=== PATIENT | female | born 1960 | race African-American/Black ===

== ENCOUNTER 2017-03-11 09:23 | Day surgery (SDC) | payer OTHER ==
[2017-03-11 12:54] VITALS: BMI 29.9
[2017-03-11] MEDS ORDERED: LIDOCAINE HCL/PF 2% SDV 5ML VIAL ONE (13:02)
[2017-03-11 13:59] VITALS: TEMP 98.2
[2017-03-11 15:38] VITALS: BP 110/61; PULSE 67
== END 2017-03-11 15:53 | disposition home or self-care (01) ==
LOC: JASU-ENDO 09:23
PROVIDERS: ATTEND Internal Medicine Gastroenterology
PROC: 0DJD8ZZ Inspection of Lower Intestinal Tract, Via Natural or Artificial Opening Endoscopic (ICD-10-PCS; principal; 2017-03-11 10:30)
DX: K62.5 Hemorrhage of anus and rectum (principal); K64.8 Other hemorrhoids

== ENCOUNTER 2017-08-19 08:39 | Day surgery (SDC) | payer OTHER ==
[2017-08-18 11:15] VITALS: BMI 29.9
[2017-08-19] MEDS ORDERED: PROPOFOL 20 ML ONE (10:22)
[2017-08-19] MEDS ORDERED: LIDOCAINE HCL/PF 2% SDV 5ML VIAL ONE (10:22)
[2017-08-19 11:17] VITALS: TEMP 97.7
[2017-08-19 12:16] VITALS: BP 116/65; PULSE 75
--- NOTE | 2017-08-20 16:33 | PATH ---
Surgical Pathology Report Patient Name: KAYLA MOFFETT [facility]. Rec. #: [id number] /Age/Gender: 1960 (Age: 57) / F Account: [id number] Location: ASU-ENDOSCOPY Taken: 08/19/2017 Received: 08/19/2017 Reported: 08/20/2017 Physicians: Massimo Ma M.D. Specimen(s) Received BX DIMINUTIVE POLYP APPENDICEAL ORIFICE Clinical History Preoperative diagnosis: Screening Postoperative diagnosis: Redundant sigmoid, appendiceal orifice polyp Final Diagnosis APPENDICEAL ORIFICE, DIMINUTIVE POLYP, BIOPSY: POLYPOID COLONIC MUCOSA WITH PROMINENT LYMPHOID AGGREGATE. Electronically Signed Heidy Kaba M.D. Gross Description Received in formalin, labeled "biopsy diminutive polyp appendiceal orifice" is a givens, irregular portion of soft tissue measuring 0.7 cm. in greatest dimension. The specimen is submitted in toto in one cassette. 08/19/201708/19/2017
== END 2017-08-19 12:16 | disposition home or self-care (01) ==
LOC: JASU-ENDO 08:39
PROVIDERS: ATTEND Internal Medicine Gastroenterology
PROC: 0DBE8ZX Excision of Large Intestine, Via Natural or Artificial Opening Endoscopic, Diagnostic (ICD-10-PCS; principal; 2017-08-19 09:00)
DX: Z12.11 Encounter for screening for malignant neoplasm of colon (principal); K63.5 Polyp of colon
CPT/HCPCS: 88305-TC

== ENCOUNTER 2017-12-23 10:28 | Emergency (ER) | payer OTHER ==
[2017-12-23 10:44] VITALS: BP 131/78; PULSE 75; TEMP 97.3; BMI 28.2
[2017-12-23] MEDS ORDERED: ACETAMINOPHEN 325 MG TABLET (FP) PO ONE (11:28)
--- NOTE | 2017-12-23 11:30 | PDOC ---
History of Present Illness - General Chief Complaint: Injury Stated Complaint: FALL Time Seen by Provider: 12/23/17 11:14 History Source: Patient Exam Limitations: No Limitations - History of Present Illness Initial Comments: 12/23/17 12:05 This is a 57-year-old woman past medical history of hyperlipidemia who presents to emergency departments with left rib pain and headache status post slip and fall in bathtub today. Patient states she was in her shower approximately 7 AM when she slipped on the porcelain striking her left ribs on the side of the tub and patient states she hit the back of her head on the rear wall of the shower. She denies any loss of consciousness. Patient states she had intense searing pain immediately after striking her ribs and it made it difficult for her to breathe. Patient states she was in history of breath after a few seconds. She denies any blurry vision, dizziness, photophobia, nausea, vomiting, shortness of breath, urinary difficulties at this time. Past History - Past Medical History Allergies/Adverse Reactions: Allergies Allergy/AdvReac Type Severity Reaction Status Date / Time Tetanus Vaccines and Toxoid Allergy Hives Verified 12/23/17 10:35 [Tetanus] Home Medications: Ambulatory Orders Collagen, Hydrolysate (Bovine) [Collagen Hydrolysate] 1 gm MC BID 08/19/17 Pravastatin Sodium 10 mg PO DAILY 08/19/17 Anemia: No Asthma: No Cancer: No Cardiac Disorders: No CVA: No COPD: No CHF: No Dementia: No Diabetes: No GI Disorders: No Disorders: No HTN: No Hypercholesterolemia: Yes Liver Disease: No Seizures: No Thyroid Disease: No - Immunization History Immunization Up to Date: Yes - Suicide/Smoking/Psychosocial Hx Smoking Status: No Smoking History: Never smoked Number of Cigarettes Smoked Daily: 0 Hx Alcohol Use: No Drug/Substance Use Hx: No Substance Use Type: None Hx Substance Use Treatment: No Review of Systems - Review of Systems Able to Perform ROS?: Yes Is the patient limited Portuguese proficient: No Constitutional: No: Symptoms Reported HEENTM: No: Symptoms Reported Respiratory: Yes: See HPI Cardiac (ROS): No: Symptoms Reported ABD/GI: No: Symptoms Reported : No: Symptoms Reported Musculoskeletal: Yes: See HPI Integumentary: No: Symptoms Reported Neurological: Yes: See HPI Endocrine: No: Symptoms Reported Hematologic/Lymphatic: No: Symptoms Reported *Physical Exam - Vital Signs Last Vital Signs Temp Pulse Resp BP Pulse Ox 97.3 F L 75 19 131/78 100 12/23/17 10:35 12/23/17 10:35 12/23/17 10:35 12/23/17 10:35 12/23/17 10:35 - Physical Exam General Appearance: Yes: Appropriately Dressed. No: Apparent Distress HEENT: positive: TMs Normal, Pharynx Normal, Other (no septal hematomas present) Neck: positive: Trachea midline, Supple Respiratory/Chest: positive: Lungs Clear, Normal Breath Sounds. negative: Respiratory Distress, Accessory Muscle Use Cardiovascular: positive: Regular Rhythm, Regular Rate. negative: Murmur Gastrointestinal/Abdominal: positive: Normal Bowel Sounds, Soft. negative: Tender Musculoskeletal: positive: Normal Inspection. negative: CVA Tenderness Extremity: positive: Normal Capillary Refill, Normal Inspection Integumentary: positive: Normal Color, Dry, Warm Neurologic: positive: resolution expert II-XII NML intact, Fully Oriented, Alert, Normal Mood/ Affect, Normal Response, Motor Strength 5/5, Finger to Nose. negative: Facial Droop, Numbness, Sensory Deficit, Confused, Disoriented ED Treatment Course - RADIOLOGY Radiology Studies Ordered: Category Date Time Status CERVICAL SPINE CT W/O CONTR [CT] Stat CT Scan 12/23/17 11:[address] WITHOUT CONTRAST [CT] Stat CT Scan 12/23/17 11:28 Ordered RIBS-LEFT SIDE [RAD] Stat Radiology 12/23/17 11:28 Ordered Medical Decision Making - Medical Decision Making 12/23/17 12:11 A/P: 57-year-old male with history of hyperlipidemia who presents with left rib pain status post slip and fall in shower Respirations even and unlabored. Lungs clear to auscultation bilaterally. No paradoxical chest wall movement noted No bruising to head, ribs or flank Point tenderness to her ribs 9 and 10 on the left side midaxillary. No crepitus , deformity or subcutaneous emphysema palpated No CVA tenderness. Cranial nerves II through XII grossly intact. No focal neurologic deficits. No tenderness to cervical spine. Fractured ribs versus bruising; traumatic kidney injury; ICH, skull fracture, vertebral fracture The patient has no tenderness to her C-spine I will perform CT of head and neck giving patient has distracting injury of rib pain Urinalysis to rule out kidney injury Left rib series to rule out costal fractures 12/23/17 14:19 CT of head and C-spine as read by abdomen: Mild reversal the cervical spine curvature. The alignment is satisfactory. No gross fracture or subluxation is seen. Degenerative disc disease at C5-C6 anterolisthesis extend C4-C5 level as described Enlarged left thyroid lobe with mild retrosternal extension and slightly hypodense nodules the largest measuring 1 cm for which correlation with thyroid ultrasound is needed. Rib series is read by me: No fracture is noted. No pneumothorax is present. UA negative *DC/Admit/Observation/Transfer Diagnosis at time of Disposition: Rib tenderness Contusion Qualifiers: Encounter type: initial encounter Contusion area: thoracic wall Contusion of thoracic wall detail: unspecified area of thoracic wall Qualified Code(s): S20.20XA - Contusion of thorax, unspecified, initial encounter - Discharge Dispostion Disposition: HOME Condition at time of disposition: Stable Admit: No - Referrals Referrals: Phoenix Donato MD, MD [Primary Care Provider] - - Patient Instructions Additional Instructions: Apply ice to affected areas for 20 minutes at a time. Remove ice for at least 20 minutes before placing more ice on ribs. Take tylenol or Motrin as needed for pain. Follow systems architecture analyst's instructions for correct dosage. Your CT scan showed no bleeding in the skull or fracture of skull or bones of the neck. There was thyroid enlargement present with nodules that requires further evaluation with your primary doctor. Return to the ED for worsening pain, shortness of breath, or any other concerns. - Post Discharge Activity
[2017-12-23] MEDS ORDERED: ACETAMINOPHEN 325 MG TABLET (FP) ONE (11:31)
[2017-12-23 12:02] LABS: URINE APPEARANCE CLEAR; URINE BILIRUBIN NEGATIVE (<2.0 mg/dL); URINE BLOOD NEGATIVE (NEGATIVE); URINE COLOR YELLOW; URINE GLUCOSE (UA) NEGATIVE (NEGATIVE); URINE KETONE NEGATIVE (NEGATIVE); URINE LEUK ESTERASE NEGATIVE (NEGATIVE); URINE NITRITE NEGATIVE (NEGATIVE); URINE PROTEIN NEGATIVE (NEGATIVE); URINE UROBILINOGEN NEGATIVE mg/dL (0.2-1.0)
== END 2017-12-23 14:32 | disposition home or self-care (01) ==
LOC: JERFT 10:28 → JER 10:28 → JERFT 14:32
DX: S20.212A Contusion of left front wall of thorax, initial encounter (principal); W18.2XXA Fall in (into) shower or empty bathtub, initial encounter; Y93.E1 Activity, personal bathing and showering; Y92.031 Bathroom in apartment as the place of occurrence of the external cause; Y99.8 Other external cause status; E78.5 Hyperlipidemia, unspecified
CPT/HCPCS: 70450-TC; 71101-TC-FY; 72125-TC; 81003; 99281-25

== ENCOUNTER 2018-03-08 12:43 | Emergency (ER) | payer OTHER ==
[2018-03-08 12:48] VITALS: BP 119/66; PULSE 69; TEMP 97; BMI 28.2
[2018-03-08] MEDS ORDERED: KETOROLAC TROMETHAMINE 60 MG/2 ML VIAL IM ONE (13:10)
--- NOTE | 2018-03-08 13:14 | PDOC ---
History of Present Illness - General Chief Complaint: Pain Stated Complaint: FOOT PAIN Time Seen by Provider: 03/08/18 13:06 History Source: Patient - History of Present Illness Occurred: reports: other Severity: Yes: moderate Lower Extremity Pain Location: right: foot Past History - Past Medical History Allergies/Adverse Reactions: Allergies Allergy/AdvReac Type Severity Reaction Status Date / Time Tetanus Vaccines and Toxoid Allergy Hives Verified 03/08/18 12:48 [Tetanus] Home Medications: Ambulatory Orders Collagen, Hydrolysate (Bovine) [Collagen Hydrolysate] 1 gm MC BID 08/19/17 Pravastatin Sodium 10 mg PO DAILY 08/19/17 Anemia: No Asthma: No Cancer: No Cardiac Disorders: No CVA: No COPD: No CHF: No Dementia: No Diabetes: No GI Disorders: No Disorders: No HTN: No Hypercholesterolemia: Yes Liver Disease: No Seizures: No Thyroid Disease: No - Immunization History Immunization Up to Date: Yes - Suicide/Smoking/Psychosocial Hx Smoking Status: No Smoking History: Never smoked Number of Cigarettes Smoked Daily: 0 Hx Alcohol Use: No Drug/Substance Use Hx: No Substance Use Type: None Hx Substance Use Treatment: No Review of Systems - Review of Systems Constitutional: No: Chills, Fever Integumentary: No: Erythema *Physical Exam - Vital Signs Last Vital Signs Temp Pulse Resp BP Pulse Ox 97 F L 69 18 119/66 99 03/08/18 12:47 03/08/18 12:47 03/08/18 12:47 03/08/18 12:47 03/08/18 12:47 - Physical Exam General Appearance: Yes: Appropriately Dressed. No: Apparent Distress HEENT: positive: Normal Voice Neck: positive: Supple Respiratory/Chest: negative: Respiratory Distress Extremity: positive: Other (localized ttp to arch of R fot, no swelling, erythema, no ttp to heel) Integumentary: positive: Dry, Warm Neurologic: positive: Fully Oriented, Alert, Normal Mood/Affect ED Treatment Course - RADIOLOGY Radiology Studies Ordered: Category Date Time Status FOOT-RIGHT [RAD] Stat Radiology 03/08/18 13:11 Ordered Medical Decision Making - Medical Decision Making 03/08/18 13:11 58-year-old female, history of type hyperlipidemia, arthritis, on celebrex, here with atraumatic right foot pain 2 days. States pain located to arch and sharp, worse with weight bearing. No history of similar pain in the past. No redness, swelling, fever or chills. Patient well-appearing and stable with point tenderness to arch of right foot with no swelling or skin changes. Possible plantar fasciitis. X-ray given degree of pain. Patient control in ED. Dc w/ podiatry f/u *DC/Admit/Observation/Transfer Diagnosis at time of Disposition: Foot pain, right - Discharge Dispostion Disposition: HOME Condition at time of disposition: Good - Referrals Referrals: Phoenix Donato MD, MD [Primary Care Provider] - Yomi Gold MD [Staff Physician] - - Patient Instructions Printed Discharge Instructions: Plantar Fasciitis Additional Instructions: X-ray was negative for fracture or other acute pathology. You may have plantar fasciitis, which is an inflammation but you will need to follow-up with podiatry for further evaluation. In the meantime, use Motrin for pain and shoe insert as discussed in ED - Post Discharge Activity
[2018-03-08] MEDS ORDERED: KETOROLAC TROMETHAMINE 60 MG/2 ML VIAL ONE (13:17)
== END 2018-03-08 13:41 | disposition home or self-care (01) ==
LOC: JERFT 12:43
PROC: 3E0233Z Introduction of Anti-inflammatory into Muscle, Percutaneous Approach (ICD-10-PCS; principal; 2018-03-08)
DX: M79.671 Pain in right foot (principal); E78.00 Pure hypercholesterolemia, unspecified; M12.9 Arthropathy, unspecified
CPT/HCPCS: 73630-TC-RT-FY; 96372; 99281-25

== ENCOUNTER 2018-12-23 18:54 | Emergency (ER) | payer OTHER ==
--- NOTE | 2018-12-23 19:58 | PDOC ---
Rapid Medical Evaluation Time Seen by Provider: 12/23/18 19:56 Medical Evaluation: Allergies Allergy/AdvReac Type Severity Reaction Status Date / Time Tetanus Vaccines and Toxoid Allergy Hives Verified 03/08/18 12:48 [Tetanus] 12/23/18 19:57 I have performed a brief in-person evaluation of this patient. The patient presents with a chief complaint of: L 2nd finger lac at home with knife ALLERGY TO TETANUS Pertinent physical exam findings: no deficits grossly wound not visualized in triage I have ordered the following: nothing The patient will proceed to the ED for further evaluation. Discharge Disposition - Diagnosis Laceration of finger of left hand - Referrals - Patient Instructions - Post Discharge Activity
[2018-12-23 20:00] VITALS: BP 115/72; PULSE 86; TEMP 97.5; BMI 29.8
--- NOTE | 2018-12-23 21:22 | PDOC ---
History of Present Illness - General Chief Complaint: Laceration Stated Complaint: FINGER LACERATION Time Seen by Provider: 12/23/18 19:56 History Source: Patient Exam Limitations: No Limitations - History of Present Illness Initial Comments: 12/23/18 21:05 finger laceration. Sustained injury at home while preparing dinner uma has a fingertip laceration to the left index finger. States washed at home and came for evaluation and treatment. Occurred: reports: just prior to arrival, this evening Severity: reports: mild Pain Location: reports: upper extremity Loss of Consciousness: no loss of consciousness Associated Symptoms (Fall): denies symptoms Past History - Travel Traveled outside of the country in the last 30 days: No (left index finger) Close contact w/someone who was outside of country & ill: No - Past Medical History Allergies/Adverse Reactions: Allergies Allergy/AdvReac Type Severity Reaction Status Date / Time Tetanus Vaccines and Toxoid Allergy Hives Verified 12/23/18 20:00 [Tetanus] Home Medications: Ambulatory Orders Collagen, Hydrolysate (Bovine) [Collagen Hydrolysate] 1 gm MC BID 08/19/17 Pravastatin Sodium 10 mg PO DAILY 08/19/17 Anemia: No Asthma: No Cancer: No Cardiac Disorders: No CVA: No COPD: No CHF: No Dementia: No Diabetes: No GI Disorders: No Disorders: No HTN: No Hypercholesterolemia: Yes Liver Disease: No Seizures: No Thyroid Disease: No - Immunization History Immunization Up to Date: Yes - Suicide/Smoking/Psychosocial Hx Smoking Status: No Smoking History: Never smoked Have you smoked in the past 12 months: No Number of Cigarettes Smoked Daily: 0 Information on smoking cessation initiated: No Hx Alcohol Use: No Drug/Substance Use Hx: No Substance Use Type: None Hx Substance Use Treatment: No Review of Systems - Review of Systems Able to Perform ROS?: Yes Is the patient limited Bahraini proficient: Yes Constitutional: Yes: See HPI, Malaise. No: Symptoms Reported HEENTM: No: Symptoms Reported Respiratory: No: Symptoms reported Musculoskeletal: Yes: Symptoms Reported Integumentary: Yes: Symptoms Reported, See HPI, Other All Other Systems: Reviewed and Negative *Physical Exam - Vital Signs Last Vital Signs Temp Pulse Resp BP Pulse Ox 97.5 F L 86 17 115/72 100 12/23/18 19:57 12/23/18 19:57 12/23/18 19:57 12/23/18 19:57 12/23/18 19:57 - Physical Exam General Appearance: Yes: Nourished, Appropriately Dressed, Apparent Distress HEENT: positive: BREEZY, Normal ENT Inspection, TMs Normal, Pharynx Normal Neck: positive: Supple. negative: Tender Respiratory/Chest: positive: Lungs Clear Musculoskeletal: positive: Normal Inspection Extremity: positive: Normal Inspection, Normal Range of Motion, Other (1 cm centimeter laceration across the distal phalanx of left index finger. Has full range of motion, flexion and extension against resistance, no nail involvement.) Integumentary: positive: Normal Color, Dry, Warm Neurologic: positive: nailer operator II-XII NML intact, Fully Oriented, Alert, Normal Mood/ Affect, Normal Response, Motor Strength 5/5 Procedures - Laceration/Wound Repair Left Finger Wound Length: to 2.5 cm Wound Explored: clean Wound's Depth, Shape: superficial Irrigated w/ Saline: Yes Betadine Prep: Yes Anesthesia: 1% Lidocaine Wound Repaired With: Sutures Suture Size/Type: 5:0 Number of Sutures: 4 Layer Closure: No Sterile Dressing Applied: Yes Splint Applied: Yes Progress Note - Progress Note Progress Note: Finger laceration repaired *DC/Admit/Observation/Transfer Diagnosis at time of Disposition: Laceration of finger of left hand Qualifiers: Encounter type: initial encounter Finger: index finger Damage to nail status: without damage Foreign body presence: unspecified Qualified Code(s): S61.211A - Laceration without foreign body of left index finger without damage to nail, initial encounter - Discharge Dispostion Disposition: HOME Condition at time of disposition: Stable Decision to Admit order: No - Referrals Referrals: Ernesto Cyr MD [Primary Care Provider] - - Patient Instructions Printed Discharge Instructions: DI for Laceration Repair Additional Instructions: Rest, elevate, avoid strenuous activity or heavy lifting until sutures are removed Leave dressing on for the next 24 hours, Then may remove dressing gently and wash area with soap and water. Reapply bacitracin ointment and dressing daily for the next 5 days On day #6 keep the wound protected and cover as needed until sutures are removed allowing wound to start to dry May use Tylenol or Motrin for pain relief Suture removal in : 7-10 Days - Post Discharge Activity Forms/Work/School Notes: Back to Work
== END 2018-12-23 21:28 | disposition home or self-care (01) ==
LOC: JERFT 18:54
PROC: 0HQFXZZ Repair Right Hand Skin, External Approach (ICD-10-PCS; principal; 2018-12-23)
DX: S61.211A Laceration without foreign body of left index finger without damage to nail, initial encounter (principal); W26.0XXA Contact with knife, initial encounter; Y93.G1 Activity, food preparation and clean up; Y92.030 Kitchen in apartment as the place of occurrence of the external cause; Y99.8 Other external cause status; Z88.8 Allergy status to other drugs, medicaments and biological substances
CPT/HCPCS: 99281-25

== ENCOUNTER 2019-01-03 17:34 | Emergency (ER) | payer OTHER ==
[2019-01-03 17:43] VITALS: BP 98/69; PULSE 71; TEMP 98.9; BMI 29.8
--- NOTE | 2019-01-03 18:13 | PDOC ---
Suture Removal/Wound Check HPI - History of Present Illness Chief Complaint: Suture/Staple Removal(Here) Stated Complaint: SUTURE REMOVAL/INDEX FINGER Time Seen by Provider: 01/03/19 17:44 History Source: Yes: Patient (L index finger laceration 10 days ago, here for removal) Exam Limitations: Yes: No Limitations - Previous ED Treatment Type of procedure performed on last visit: Yes: Laceration Repair Tetanus Immunization: Yes: Up to Date Past History - Travel Traveled outside of the country in the last 30 days: No Close contact w/someone who was outside of country & ill: No - Past Medical History Allergies/Adverse Reactions: Allergies Allergy/AdvReac Type Severity Reaction Status Date / Time Tetanus Vaccines and Toxoid Allergy Hives Verified 01/03/19 17:43 [Tetanus] Home Medications: Ambulatory Orders Collagen, Hydrolysate (Bovine) [Collagen Hydrolysate] 1 gm MC BID 08/19/17 Pravastatin Sodium 10 mg PO DAILY 08/19/17 Anemia: No Asthma: No Cancer: No Cardiac Disorders: No CVA: No COPD: No CHF: No Dementia: No Diabetes: No GI Disorders: No Disorders: No HTN: No Hypercholesterolemia: Yes Liver Disease: No Seizures: No Thyroid Disease: No - Immunization History Immunization Up to Date: Yes - Suicide/Smoking/Psychosocial Hx Smoking Status: No Smoking History: Never smoked Have you smoked in the past 12 months: No Number of Cigarettes Smoked Daily: 0 Hx Alcohol Use: No Drug/Substance Use Hx: No Substance Use Type: None Hx Substance Use Treatment: No Suture Removal/Wound Check PE - Physical Exam Current Severity Level: None Location of Laceration/Wound: left: Finger (index) *Review of Systems - Review of Systems Constitutional: No: Chills, Fever Integumentary: No: Erythema *Physical Exam - Vital Signs Last Vital Signs Temp Pulse Resp BP Pulse Ox 98.9 F 71 18 98/69 100 01/03/19 17:40 01/03/19 17:40 01/03/19 17:40 01/03/19 17:40 01/03/19 17:40 - Physical Exam General Appearance: Yes: Nourished Extremity: positive: Normal Capillary Refill, Normal Inspection, Other (L index finger--healing lac with stitiches, no pus noted) Medical Decision Making - Medical Decision Making 01/03/19 18:17 58y/o F with lac repair 12/23/18, here for suture removal no complaints 4 stitches removed with ease *DC/Admit/Observation/Transfer Diagnosis at time of Disposition: Visit for suture removal - Discharge Dispostion Disposition: HOME Condition at time of disposition: Stable Decision to Admit order: No - Referrals Referrals: Ernesto Cyr MD [Primary Care Provider] - - Patient Instructions Printed Discharge Instructions: DI for Suture Removal - Post Discharge Activity
== END 2019-01-03 18:16 | disposition home or self-care (01) ==
LOC: JERFT 17:34
DX: Z48.817 Encounter for surgical aftercare following surgery on the skin and subcutaneous tissue (principal); Z48.02 Encounter for removal of sutures
CPT/HCPCS: 99281-25

== ENCOUNTER 2019-05-20 10:55 | Emergency (ER) | payer OTHER ==
[2019-05-20 11:01] VITALS: BMI 28.2
--- NOTE | 2019-05-20 11:47 | PDOC ---
History of Present Illness - General Chief Complaint: Headache Stated Complaint: HEADACHES Time Seen by Provider: 05/20/19 11:44 - History of Present Illness Initial Comments: 05/20/19 12:53 HPI: 59 y/o F with hx of migraine in her 20s now resolved, BL cataracts s/p lens implantation, HLD presenting with 4 days of persistent headache over the parietal region. It began suddenly and has been intermittent since onset. At its worst pain is 10/10 and prevents her from sleeping. Pain is described as pounding in nature. She reports being in her normal state of health prior to onset of symptoms. She denies photo/phonophobia, nausea, emesis, neck pain/ stiffness, tinnitus, change in visions, chest pain, SOB, LH, dizziness, syncope , trauma. Of note, she reports being told by an eye doctor she had glaucoma and has been taking eye drops, however, she saw another eye doctor yesterday for a second opinion and was told her ocular pressures were within normal limits and to stop the eye drops. She also reports the only change in her diet/habits was incorportaing tumeric in her cooking starting 4-5 days ago. PMHx: as noted above ROS: as noted SHx: Denies tobacco use; no alcohol use; no rec drugs Allergies: NKDA Past History - Past Medical History Allergies/Adverse Reactions: Allergies Allergy/AdvReac Type Severity Reaction Status Date / Time Tetanus Vaccines and Toxoid Allergy Hives Verified 05/20/19 10:57 [Tetanus] Home Medications: Ambulatory Orders Pravastatin Sodium 10 mg PO DAILY 08/19/17 Bimatoprost [Lumigan] 1 drop OU HS 05/20/19 Anemia: No Asthma: No Cancer: No Cardiac Disorders: No CVA: No COPD: No CHF: No Dementia: No Diabetes: No GI Disorders: No Disorders: No HTN: No Hypercholesterolemia: Yes Liver Disease: No Seizures: No Thyroid Disease: No - Immunization History Immunization Up to Date: Yes - Suicide/Smoking/Psychosocial Hx Smoking Status: No Smoking History: Never smoked Have you smoked in the past 12 months: No Number of Cigarettes Smoked Daily: 0 Information on smoking cessation initiated: No Hx Alcohol Use: No Drug/Substance Use Hx: No Substance Use Type: None Hx Substance Use Treatment: No Review of Systems - Review of Systems Comments:: 05/20/19 13:11 GENERAL/CONSTITUTIONAL: No fever or chills. No weakness. HEAD, EYES, EARS, NOSE AND THROAT: No change in vision. No ear pain or discharge. No sore throat. CARDIOVASCULAR: No chest pain or shortness of breath RESPIRATORY: No cough, wheezing, or hemoptysis. GASTROINTESTINAL: No nausea, vomiting, diarrhea or constipation. GENITOURINARY: No dysuria, frequency, or change in urination. MUSCULOSKELETAL: No joint or muscle swelling or pain. No neck or back pain. SKIN: No rash NEUROLOGIC: No vertigo, loss of consciousness, or change in strength/sensation. ENDOCRINE: No increased thirst. No abnormal weight change HEMATOLOGIC/LYMPHATIC: No anemia, easy bleeding, or history of blood clots. ALLERGIC/IMMUNOLOGIC: No hives or skin allergy. *Physical Exam - Vital Signs Last Vital Signs Temp Pulse Resp BP Pulse Ox 98.2 F 72 17 109/85 100 05/20/19 10:58 05/20/19 10:58 05/20/19 10:58 05/20/19 10:58 05/20/19 10:58 - Physical Exam Comments: 05/20/19 13:11 ENERAL: Awake, alert, and fully oriented, no acute distress HEAD: No signs of trauma, normocephalic, atraumatic EYES: EOMI, sclera anicteric, conjunctiva clear ENT: Auricles normal inspection, hearing grossly normal, nares patent, oropharynx clear without exudates. Moist mucosa NECK: Normal ROM, no lymphadenopathy LUNGS: No increased work of breathing, symmetrical chest rise, clear to auscultation bilaterally, no wheezes, crackles or rhonchi HEART: Regular rate and rhythm, normal S1 and S2, no murmurs, peripheral pulses 2+ and equal bilaterally. ABDOMEN: Soft, nontender, nondistended, normoactive bowel sounds. No guarding, no rebound. No masses EXTREMITIES : Normal inspection, Normal range of motion, no edema. No clubbing or cyanosis. NEUROLOGICAL: Cranial nerves II through XII grossly intact. Normal speech, normal gait, no focal sensorimotor deficits SKIN: Warm, Dry, normal turgor, no rashes or lesions noted Medical Decision Making - Medical Decision Making 05/20/19 13:12 59 y/o F with hx of migraine in her 20s now resolved, BL cataracts s/p lens implantation, HLD presenting with 4 days of persistent headache over the parietal region which intermittently worsens in severity. Vitals wnl on arrival. PE unremarkable. Given age and new onset persistent headache, DDx includes mass, CVA, migraine, tension headache, dehydration -CT head -IVF, alfonzo oftomasev 05/20/19 13:58 headache completely resolved following administration of medications and IVF awaiting CTH results 05/20/19 14:30 CTH with no acute intracranial abnormality Discussed with patient return pcxns and patient is comfortable with DC with PCP followup *DC/Admit/Observation/Transfer Diagnosis at time of Disposition: Headache Qualifiers: Headache type: unspecified Headache chronicity pattern: acute headache Intractability: intractable Qualified Code(s): R51 - Headache - Discharge Dispostion Disposition: HOME Condition at time of disposition: Improved Decision to Admit order: No - Referrals Referrals: Enresto Cyr MD [Primary Care Provider] - - Patient Instructions Printed Discharge Instructions: DI for Headache Additional Instructions: Additional Instructions: Please return to the emergency department with any new or worsening symptoms or concerns including worsening headache, change in vision, fainting, seizure, vomiting. Please follow up with your primary care physician within 72 hours and for possible neurology referral if symptoms persist Please take Tylenol 650mg every 6 hours and alternate with ibuprofen 600mg every 6hours for pain relief - Post Discharge Activity
[2019-05-20] MEDS ORDERED: SODIUM CHLORIDE 1,000 ML IV STA (12:20)
[2019-05-20] MEDS ORDERED: ACETAMINOPHEN 1000 MG/100 ML VIAL (NON FORMULARY) IVPB ONE (12:20)
[2019-05-20] MEDS ORDERED: METOCLOPRAMIDE HCL INJECTION 10 MG/2 ML VIAL IVPUSH ONE (12:20)
[2019-05-20] MEDS ORDERED: ACETAMINOPHEN INJECTION 100 ML IVPB ONE (12:31)
[2019-05-20] MEDS ORDERED: METOCLOPRAMIDE HCL INJECTION 10 MG/2 ML VIAL ONE (12:31)
--- NOTE | 2019-05-20 14:52 | PDOC ---
Documentation entered by Loyda Paul SCRIBE, acting as scribe for Naseem Paniagua MD. Naseem Paniagua MD: This documentation has been prepared by the Beverly varner Adrianna, SCRIBE, under my direction and personally reviewed by me in its entirety. I confirm that the documentation accurately reflects all work, treatment, procedures, and medical decision making performed by me. Attending Attestation - Resident Resident Name: JoseShaistamarlen - ED Attending Attestation I have performed the following: I have examined & evaluated the patient, The case was reviewed & discussed with the resident, I agree w/resident's findings & plan - HPI HPI: 05/20/19 14:49 59-year-old female with distant history of migraines presents with gradual onset mild headache for the past 3 days. Patient awoke 3 days ago with mild parietal headache, since then constant but progressively worsening, not associated with any vision change/speech change/nausea/vomiting/focal deficit. Reminded her of her past migraines, but has not had an exacerbation in about 20 years and for evaluation. Patient does take glaucoma drops since November, no changes or dosing adjustments, denies any travel or fevers or chills or neck stiffness or photophobia. - Physicial Exam PE: 05/20/19 14:50 Afebrile, vital signs normal Well-appearing seated comfortably in stretcher No sinus tenderness, pupils with glaucomatous changes but reactive to light, extraocular movements intact Neck is supple, no audible carotid bruit NEURO: Mental status: The patient is alert and oriented x3. Cranial nerves: Cranial nerves II through XII are intact Motor: The upper extremities are 5 over 5 in all muscle groups. The lower extremities are 5 over 5 in all muscle groups. No pronator drift. Sensation: Sensation is intact to light touch throughout. Cerebellar: Cddcxi-xposco-cqcw is normal in both upper extremities. Heel-knee- mckinney is normal in both lower extremities. Reflexes: 2+ and symmetric in the upper and lower extremities. Gait: Normal. Heel and toe walking are normal. Tandem gait is normal. - Medical Decision Making 05/20/19 14:51 59-year-old female with history of migraine headaches presents with exacerbation for the first time in 20 years, neurologically intact with normal vital signs and no other red flags on history or physical exam. Given age and change in pattern will check imaging. CT head without acute pathology patient feels markedly improved after Tylenol and Reglan and fluids Agrees with discharge plan, PCP follow-up, neurology referral given if symptoms persist.
[2019-05-20 15:09] VITALS: BP 116/81; PULSE 61; TEMP 98
== END 2019-05-20 15:09 | disposition home or self-care (01) ==
LOC: JER 10:55
PROC: 3E0337Z Introduction of Electrolytic and Water Balance Substance into Peripheral Vein, Percutaneous Approach (ICD-10-PCS; principal; 2019-05-20)
PROC: 3E033GC Introduction of Other Therapeutic Substance into Peripheral Vein, Percutaneous Approach (ICD-10-PCS; 2019-05-20)
PROC: 3E033NZ Introduction of Analgesics, Hypnotics, Sedatives into Peripheral Vein, Percutaneous Approach (ICD-10-PCS; 2019-05-20)
DX: R51 Headache (principal)
CPT/HCPCS: 70450-TC; 99283-25; J0131; J7030

== ENCOUNTER 2020-07-01 11:59 | Inpatient (IN) | payer OTHER ==
--- OUTSIDE RECORDS SUMMARY | 2020-07-01 12:17 | XMS ---
:1960 Author Organization [facility] Care Team Providers Name Role Phone ED STAFF PHYSICIAN, STAFF Unavailable Unavailable ZUNASSIGNED Unavailable Unavailable ED STAFF PHYSICIAN Unavailable Unavailable Re-disclosure Warning The records that you are about to access may contain information from federally- assisted alcohol or drug abuse programs. If such information is present, then the following federally mandated warning applies: This information has been disclosed to you from records protected by federal confidentiality rules (42 CFR part 2). The federal rules prohibit you from making any further disclosure of this information unless further disclosure is expressly permitted by the written consent of the person to whom it pertains or as otherwise permitted by 42 CFR part 2. A general authorization for the release of medical or other information is NOT sufficient for this purpose. The Federal rules restrict any use of the information to criminally investigate or prosecute any alcohol or drug abuse patient.The records that you are about to access may contain highly sensitive health information, the redisclosure of which is protected by Article 27-F of the [facility] Public Health law. If you continue you may haveaccess to information: Regarding HIV / AIDS; Provided by facilities licensed or operated by the [facility] Office of Mental Health; or Provided by the [facility] Office for People With Developmental Disabilities. If such information is present, then the following [facility] mandated warning applies: This information has been disclosed to you from confidential records which are protected by state law. State law prohibits you from making any further disclosure of this information without the specific written consent of the person to whom it pertains, or as otherwise permitted by law. Any unauthorized further disclosure in violation of state law may result in a fine or shelter sentence or both. A general authorization for the release of medical or other information is NOT sufficient authorization for further disclosure. Encounters Encounter Providers Location Date Indications Data Source(s ) Emergency Attender: ED STAFF H 06/26/2020 [facility] PHYSICIANAttender: 02:10:00 PM [facility] STAFF ED STAFF EDT - PHYSICIANAdmitter: ED 06/26/2020 STAFF 07:03:00 PM PHYSICIANReferrer: EDT ZUNASSIGNED Patient discharged. Insurance Providers Payer name Policy type Policy ID Covered Covered democrat's Policy P jaci / Coverage democrat ID relationship to [place] [employer] ormation type [place] UNITED [id number] SP [id number] HEALTHCARE (MEDICARE) [facility] [id number] 01 [id number] HEALTHCARE MCARE OPD COMPUTER W [id number] 01 [id number] Pressly [facility] [id number] 01 [id number] HEALTHCARE COMMUNITY PLAN [facility] [id number] SP [id number] [facility] MEDICARE [id number] SP [id number] HIP MEDICAID [id number] SP [id number] HEALTH [id number] SP [id number] SOLUTIONS MEDICARE HEALTH SP SOLUTIONS [place] [id number] SP [id number] HEALTHCARE (MEDICARE) HEALTH [id number] SP [id number] [employer] [place] [id number] HEALTHCARE HMO [place] [id number] PT [id number] HEALTHCARE [facility] Medicare-Blue [id number] S [id number] Cross/Blue Shield Medicare [id number] S [id number] [facility] Dental [id number] S [id number] [employer] Emblem Medicaid HIP Medicaid [id number] S [id number] Managed Care HIP Prime HMO [id number] Medicaid [id number] S [id number] Regular Clinic Visit Problems, Conditions, and Diagnoses Code Display Name Description Problem Type Effective Dates Data Source(s) H60.11 Cellulitis of CELLULITIS OF Diagnosis 06/26/2020 [facility] right external ear RIGHT EXTERNAL 02:10:00 PM E [facility] EAR H92.09 Otalgia, OTALGIA, Diagnosis 06/26/2020 [facility] unspecified ear UNSPECIFIED EAR 02:10:00 PM EDT Medical Center Results ID Date Data Source [id number] 06/26/2020 04:00:00 PM EDT [facility] 400 Name Value Range Interpretation Code Description Data Alyssa rce(s) Supporting Document(s ) UNK <item><content [facility] styleCode="Bold"> Medical [facility] er Culture Status </content>
<t able><tbody><tr>< td>Specimen Number:</td><td>[id number]</td></tr ><tr><td>Sample Collection Date/Time: </td><td> 0 4:00 PM</td></tr><tr>< td>Specimen Source:</td><td>B LOOD</td></tr><tr ><td>Blood Culture:</td><td> Collection Plate Date: 06/26/2020 16:10 </td></tr><tr><td >Culture Report:</td><td>C ulture in progress </td></tr><tr><td >Culture Status:</td><td>P reliminary </td></tr></tbody ></table></item> UNK <item><content [facility] styleCode="Bold"> Medical [facility] er Culture Report </content>
<t able><tbody><tr>< td>Specimen Number:</td><td>[id number]</td></tr ><tr><td>Sample Collection Date/Time: </td><td> 0 4:00 PM</td></tr><tr>< td>Specimen Source:</td><td>B LOOD</td></tr><tr ><td>Blood Culture:</td><td> Collection Plate Date: 06/26/2020 16:10 </td></tr><tr><td >Culture Status:</td><td>P reliminary </td></tr><tr><td >Culture Report:</td><td>C ulture in progress </td></tr></tbody ></table></item> ID Date Data Source Microbiology.[id number] 06/26/2020 03:45:00 PM EDT [facility] 400 Name Value Range Interpretation Code Description Data Alyssa rce(s) Supporting Document(s ) UNK <item><content [facility] styleCode="Bold"> Medical [facility] er Culture Report </content>
<t able><tbody><tr>< td>Specimen Number:</td><td>[id number]</td></tr ><tr><td>Sample Collection Date/Time: </td><td> 0 3:45 PM</td></tr><tr>< td>Specimen Source:</td><td>B LOOD</td></tr><tr ><td>Blood Culture:</td><td> Collection Plate Date: 06/26/2020 15:55 </td></tr><tr><td >Culture Status:</td><td>P reliminary </td></tr><tr><td >Culture Report:</td><td>C ulture in progress </td></tr></tbody ></table></item> UNK <item><content [facility] styleCode="Bold"> Medical [facility] er Culture Status </content>
<t able><tbody><tr>< td>Specimen Number:</td><td>[id number]</td></tr ><tr><td>Sample Collection Date/Time: </td><td> 0 3:45 PM</td></tr><tr>< td>Specimen Source:</td><td>B LOOD</td></tr><tr ><td>Culture Report:</td><td>C ulture in progress </td></tr><tr><td >Culture Status:</td><td>P reliminary </td></tr><tr><td >Blood Culture:</td><td> Collection Plate Date: 06/26/2020 15:55 </td></tr></tbody ></table></item> ID Date Data Source HematologyRou.[id number] 06/26/2020 03:15:00 PM EDT [facility] 0400 Name Value Range Interpretation Description Data Sup porting Code Source(s) Document(s ) Leukocytes 4.4-11.0 <content [facility] [#/volume] in styleCode="Bold Cherrie Blood by ">White Blood Medical Automated count Cell Count Center </content>5.36 KCUMM<content styleCode="Ital ics"> (4.4-11.0 KCUMM)</content > Erythrocyte mean 80.0-100 <content [facility] corpuscular .0 styleCode="Bold Cherrie volume [Entitic ">Mean Medical volume] by Corpuscular Center Automated count Volume </content>97.9 FL<content styleCode="Ital ics"> (80.0-100.0 FL)</content> Erythrocyte mean 26.0-34. <content [facility] corpuscular 0 styleCode="Bold Cherrie hemoglobin ">Mean Medical [Entitic mass] Corposcular Center by Automated Hemoglobin count </content>32.2 PG<content styleCode="Ital ics"> (26.0-34.0 PG)</content> Hemoglobin 12.3-16. <content [facility] [Mass/volume] in 0 styleCode="Bold Cherrie Blood ">Hemoglobin Medical </content>13.8 Center G/DL<content styleCode="Ital ics"> (12.3-16.0 G/DL)</content> Hematocrit 36.0-46. <content [facility] [Volume 0 styleCode="Bold Cherrie Fraction] of ">Hematocrit Medical Blood by </content>41.9 Center Automated count %<content styleCode="Ital ics"> (36.0-46.0 %)</content> Erythrocytes 4.0-5.1 <content [facility] [#/volume] in styleCode="Bold Cherrie Blood by ">Red Blood Medical Automated count Cell Count Center </content>4.28 MCUMM<content styleCode="Ital ics"> (4.0-5.1 MCUMM)</content > Erythrocyte mean 32.0-37. <content [facility] corpuscular 0 styleCode="Bold Cherrie hemoglobin ">Mean Corpus. Medical concentration Hgb Center [Mass/volume] by Concentration Automated count (MCHC) </content>32.9 G/DL<content styleCode="Ital ics"> (32.0-37.0 G/DL)</content> Platelet mean 8.0-11.0 <content [facility] volume [Entitic styleCode="Bold Cherrie volume] in Blood ">Mean Platelet Medical by Automated Volume Center count </content>10.7 FL<content styleCode="Ital ics"> (8.0-11.0 FL)</content> UNK 0 <content [facility] styleCode="Bold Cherrie ">Nucleated Red Medical Blood Cell Center </content>0.0 /100<content styleCode="Ital ics"> (0 /100)</content> Platelets 130-400 <content [facility] [#/volume] in styleCode="Bold Cherrie Blood by ">Platelet Medical Automated count Count Center </content>192 KCUMM<content styleCode="Ital ics"> (130-400 KCUMM)</content > Erythrocyte 11.5-14. <content [facility] distribution 5 styleCode="Bold Cherrie width [Ratio] by ">Red Cell Medical Automated count Distribution Center Width </content>12.9 %<content styleCode="Ital ics"> (11.5-14.5 %)</content> UNK 0.0 <content [facility] styleCode="Bold Cherrie ">Nucleated Red Medical Blood Cell Center Count </content>0.00 KCUMM<content styleCode="Ital ics"> (0.0 KCUMM)</content > ID Date Data Source GFR(Creatinine).[id number] 06/26/2020 03:15:00 PM EDT [facility] 0-0400 Name Value Range Interpretation Code Description Data Alyssa rce(s) Supporting Document(s ) UNK > 60 <content [facility] styleCode="Bold"> Medical Cent er EGFR </content>109 GFR<content styleCode="Italic s"> (> 60 GFR)</content> ID Date Data Source [id number] 06/26/2020 03:15:00 PM EDT [facility] Name Value Range Interpretation Description Data Sup porting Code Source(s) Document(s ) Sodium 137-145 <content [facility] [Moles/volume] styleCode="Arlin Cherrie in Serum or d">Sodium Medical Plasma </content>139 Center MEQ/L<content styleCode="Destiny lics"> (137-145 MEQ/L)</conten t> Potassium 3.5-5.3 <content [facility] [Moles/volume] styleCode="Arlin Cherrie in Serum or d">Potassium Medical Plasma </content>3.6 Center MEQ/L<content styleCode="Destiny lics"> (3.5-5.3 MEQ/L)</conten t> Carbon 22-30 <content [facility] dioxide, total styleCode="Arlin Cherrie [Moles/volume] d">Carbon Medical in Serum or Dioxide Center Plasma </content>24 MEQ/L<content styleCode="Destiny lics"> (22-30 MEQ/L)</conten t> Chloride 98-107 Above high normal <content [facility] [Moles/volume] styleCode="Arlin Cherrie in Serum or d">Chloride Medical Plasma </content>109 Center MEQ/L H<content styleCode="Destiny lics"> (98-107 MEQ/L)</conten t> UNK 7-17 <content [facility] styleCode="Arlin Cherrie d">BUN Medical </content>11 Center MG/DL<content styleCode="Destiny lics"> (7-17 MG/DL)</conten t> Creatinine 0.5-1.3 <content [facility] [Mass/volume] styleCode="Arlin Cherrie in Serum or d">Creatinine Medical Plasma </content>0.7 Center MG/DL<content styleCode="Destiny lics"> (0.5-1.3 MG/DL)</conten t> UNK > 60 <content [facility] styleCode="Arlin Cherrie d">EGFR Medical </content>109 Center GFR<content styleCode="Destiny lics"> (> 60 GFR)</content> Calcium 8.4-10.2 <content [facility] [Mass/volume] styleCode="Arlin Cherrie in Serum or d">Calcium Medical Plasma </content>9.3 Center MG/DL<content styleCode="Destiny lics"> (8.4-10.2 MG/DL)</conten t> Glucose 74-106 <content [facility] [Mass/volume] styleCode="Arlin Cherrie in Serum or d">Glucose Medical Plasma </content>83 Center MG/DL<content styleCode="Destiny lics"> (74-106 MG/DL)</conten t> ID Date Data Source [id number] 06/05/2020 10:30:00 AM EDT [facility] Name Value Range Interpretation Code Description Data Alyssa rce(s) Supporting Document(s ) COV2 [facility] This lab was ordered by [facility] and reported by [facility] [place]. ID Date Data Source [id number] 01/16/2020 12:00:00 AM EDT [facility] Name Value Range Interpretation Code Description Data Alyssa rce(s) Supporting Document(s ) 2019-nCoV [facility] RNA XXX LETICIA+probe- Imp This lab was ordered by [facility] and reported by [facility]. Procedure Social History Code Duration Value Status Description Data Source(s ) Smoking 06/26/2020 Denies Ever completed Denies Ever Smoked [facility] 02:57:00 PM EDT Smoked Medical C enter Smoking 06/26/2020 Denies Ever completed Denies Ever Smoked [facility] 02:34:00 PM EDT Smoked Medical C enter Vital Signs ID Date Data Source UNK Name Value Range Interpretation Code Description Data Source(s) Body temperature 37.560523 37.768999 [facility] Respiratory rate 18 /min 18 /min [facility] Oxygen saturation 98 % 98 % [facility] osephs in Arterial blood [facility] Center by Pulse oximetry Heart rate 80 /min 80 /min [facility] Diastolic blood 70 mm[Hg] 70 mm[Hg] [facility] pressure [facility] Center Systolic blood 110 mm[Hg] 110 mm[Hg] [facility] Center Respiratory rate 18 /min 18 /min [facility] Oxygen saturation 99 % 99 % [facility] osephs in Arterial blood [facility] Center by Pulse oximetry Heart rate 97 /min 97 /min [facility] Body height 167.257964 167.285776 cm [facility] Diastolic blood 65 mm[Hg] 65 mm[Hg] [facility] pressure Medical Center Systolic blood 111 mm[Hg] 111 mm[Hg] [facility] Body mass index 28.3 kg/m2 28.3 kg/m2 [facility] (BMI) [Ratio] Medical Tamra ter Body weight 80.161440 kg 80.788539 kg [facility] Measured Medical Center Body temperature 36.988191 36.235875 [facility]
[2020-07-01] MEDS ORDERED: CLINDAMYCIN 600MG PREMIX IVPB 600 MG/50 ML BAG IVPB ONE (12:47)
[2020-07-01] MEDS ORDERED: VANCOMYCIN 1 GM PREMIX - 1 GM/200 ML BAG IVPB ONE (12:47)
--- NOTE | 2020-07-01 13:08 | PDOC ---
History of Present Illness - General Chief Complaint: Wound Stated Complaint: RT EAR PAIN Time Seen by Provider: 07/01/20 12:13 History Source: Patient - History of Present Illness Timing/Duration: other Past History - Medical History Allergies/Adverse Reactions: Allergies Allergy/AdvReac Type Severity Reaction Status Date / Time Tetanus Vaccines and Toxoid Allergy Hives Verified 07/01/20 12:01 [Tetanus] Home Medications: Ambulatory Orders Pravastatin Sodium 20 mg PO DAILY 08/19/17 Anemia: No Asthma: No Cancer: No Cardiac Disorders: No CVA: No COPD: No CHF: No Dementia: No Diabetes: No GI Disorders: No Disorders: No HTN: No Hypercholesterolemia: Yes Liver Disease: No Seizures: No Thyroid Disease: No - Immunization History Immunization Up to Date: Yes - Psycho-Social/Smoking History Smoking Status: No Smoking History: Never smoked Have you smoked in the past 12 months: No Number of Cigarettes Smoked Daily: 0 Review of Systems - Review of Systems Constitutional: No: Chills, Fever, Malaise HEENTM: Yes: Ear Pain Integumentary: Yes: Erythema *Physical Exam - Vital Signs Last Vital Signs Temp Pulse Resp BP Pulse Ox 97.7 F 78 18 111/67 98 07/01/20 12:01 07/01/20 12:01 07/01/20 12:01 07/01/20 12:01 07/01/20 12:01 - Physical Exam General Appearance: Yes: Appropriately Dressed, Mild Distress HEENT: positive: Normal Voice, Other (siginicant edema to external R ear extending into canal, unable to visualize TM or place speculum w/ + preauricular fullness w/ small open area w/ purulent drainage, no swelling/ttp over mastoid) Neck: positive: Supple Respiratory/Chest: negative: Respiratory Distress Integumentary: positive: Dry, Warm Neurologic: positive: Fully Oriented, Alert, Normal Mood/Affect ED Treatment Course - LABORATORY CBC & Chemistry Diagram: 07/01/20 13:52 07/01/20 13:52 - RADIOLOGY Radiology Studies Ordered: Category Date Time Status FACIAL BONES CT WITH CONTRAST [CT] Stat CT Scan 07/01/20 12:53 Ordered CHEST X-RAY PORTABLE* [RAD] Stat Radiology 07/01/20 12:52 Ordered Medical Decision Making - Medical Decision Making 07/01/20 13:02 60-year-old female, history of HLD, here with worsening R ear pain and swelling. Patient states a month ago she was seen in an ER in [place] for a laceration inside her right ear canal and had sutures placed. States sutures were removed after a week and at some point after that, developed pain and swelling to ear. Was then seen in the ED at [facility], given 1 dose of vancomycin as per documents patient has on her person and was discharged with clindamycin and naproxen which patient is currently taking. States symptoms have worsened despite taking meds and has since developed R facial swelling with purulent discharge. Denies any fever or chills see exam Suture removal to R ear canal >3 weeks ago w/ gradual worsening R ear/facial cellulitis despite taking abx No systemic s/s Exam remarkable for severe R otitis externa w/ pre-auricular fullness, C/F ? abscess, unable to visualized R TM given significant canal edema, NT over mastoid -pain control -wound cx -labs -CT -anticipate admission 07/01/20 19:13 CT read as no evidence of mastoiditis. There is also no evidence of fluid collection. Findings consistent with cellulitis of the external earlobe. As per d/w Dr Newby, will admit at this time 07/01/20 20:43 I microblogged hospitalist regarding admitting patient and after not receiving call to discuss case, I then called the hospitalist who told me that everyone was in a rapid response and that they would contact ED at some point to take report. At this point I signed out patient to Dr. Valente Discharge - Discharge Information Problems reviewed: Yes Clinical Impression/Diagnosis: Cellulitis of earlobe Qualifiers: Laterality: right Qualified Code(s): H60.11 - Cellulitis of right external ear Condition: Stable - Admission Yes - Follow up/Referral Referrals: Josiah Echeverria MD [Primary Care Provider] - - Patient Discharge Instructions - Post Discharge Activity
[2020-07-01] MEDS ORDERED: morphine CARPU-JECT 4 MG/1 ML DISP.SYRIN IVPUSH ONE (13:09)
[2020-07-01 14:05] LABS: BASO % 0.8 % (0-2.0); EOS % 5.3 % (0-4.5); HEMATOCRIT 40.2 % (32.4-45.2); HEMOGLOBIN 13.5 GM/dL (10.7-15.3); LYMPH % 24.9 % (8-40); MCH 32.3 pg (25.7-33.7); MCHC 33.7 g/dl (32.0-36.0); MEAN CELL VOLUME 95.9 fl (80-96); MEAN PLT VOLUME 8.8 fl (7.5-11.1); MONO % 9.3 % (3.8-10.2); NEUT % 59.7 % (42.8-82.8); PLATELET COUNT 184 K/MM3 (134-434); RBC 4.19 M/mm3 (3.60-5.2); RDW 13.1 % (11.6-15.6)
[2020-07-01] MEDS ORDERED: VANCOMYCIN 1 GRAM (PRE-DOCKED) 1,000 MG/250 ML BAG IVPB ONE (14:09)
[2020-07-01] MEDS ORDERED: morphine SULFATE 4 MG/ML VIAL ONE (14:09)
[2020-07-01 14:34] LABS: ALBUMIN 3.4 g/dl (3.4-5.0); BLOOD UREA NITROGEN 12.4 mg/dL (7-18); CALCIUM 8.8 mg/dL (8.5-10.1); CREATININE 0.6 mg/dL (0.55-1.3); POTASSIUM 4.8 mmol/L (3.5-5.1); TOT PROT 7.1 g/dl (6.4-8.2)
--- NOTE | 2020-07-01 21:02 | PN ---
Teaching Attending Note Name of Resident: Chana Foster ATTENDING PHYSICIAN STATEMENT I saw and evaluated the patient. I reviewed the resident's note and discussed the case with the resident. I agree with the resident's findings and plan as documented. SUBJECTIVE: Patient is a 60-year-old woman with a PMH of Glaucoma and HLD who presents with worsening right ear pain and swelling. Patient states - incredulously - that she fell down once and hurt both ears at same time. One month ago she was seen in an ER in [place] for a laceration inside her right ear canal and had sutures placed. States sutures were removed after a week and at some point after that, developed pain and swelling to ear. Was then seen in the ER at [facility], given 1 dose of Vancomycin and was discharged with clindamycin and naproxen which patient is currently taking. States symptoms have worsened despite taking medications and has since developed right facial swelling with purulent discharge from the ear. Patient denies chest pain, shortness of breath, abdominal pain, headache, palpitations, dizziness, fever, chills, nausea, vomiting, diarrhea, constipation, dysuria, frequency, urgency, melena, hematochezia or hematuria. Denies alcohol, tobacco or illicit drug use. No sick contacts or recent travels. Family history is unremarkable. OBJECTIVE: Alert Vital Signs Period Temp Pulse Resp BP Sys/Arellano Pulse Ox Last 24 Hr 97.7 F 69-78 18-18 93-111/63-67 98-100 HEENT: No Jaundice, eye redness or discharge, PERRLA, EOMI. Severe right otitis externa with swelling and discharge; unable to visualized right TM due to canal edema; left ear swelling; rash behind right ear. Hearing is grossly intact. Normocephalic, atraumatic. No nasal discharge. Hyperpigmented spots in the oral mucosa. Neck: Supple, nontender. No palpable adenopathy or thyromegaly. No JVD Chest: Good effort. Clear to auscultation and percussion. Heart: Regular. No S3, rub or murmur Abdomen: Not distended, soft, nontender and no HSM. No rebound or guarding. Normal bowel sounds. Ext: Peripheral pulses intact. No leg edema. Skin: Warm and dry. No petechiae, rash or ecchymosis. Neuro: Alert. Oriented x3. CN 2-12 grossly intact. Sensation grossly intact in all four extremities and DTR are symmetric. Psych: Appropriate mood and affect. Good insight. Home Medications Medication Instructions Recorded Pravastatin Sodium 20 mg PO DAILY 08/19/17 Acetazolamide 125 mg PO DAILY 07/01/20 Abnormal Lab Results 07/01/20 07/01/20 13:52 13:52 Eosinophils % 5.3 H D Chloride 108 H Anion Gap 4 L AST 40 H Current Medications Generic Name Dose Route Start Last Admin Trade Name Freq PRN Reason Stop Dose Admin Acetaminophen 650 mg 07/01/20 21:49 Tylenol - PO Q4H PRN PAIN LEVEL 6-10 Acetazolamide 125 mg 07/02/20 10:00 Diamox - PO DAILY KONRAD Atorvastatin Calcium 10 mg 07/02/20 22:00 Lipitor - PO HS KONRAD Clindamycin Phosphate 600 mg in 50 mls @ 100 mls/hr 07/01/20 22:00 Cleocin 600 Mg Premix Ivpb - IVPB Q6H-IV KONRAD Protocol Ceftriaxone Sodium 1 gm/ 50 mls @ 100 mls/hr 07/01/20 22:00 Dextrose IVPB DAILY KONRAD Protocol Ofloxacin 10 drop 07/01/20 22:00 Floxin Otic (Ear) Solution - AU 07/15/20 21:59 BID KONRAD ASSESSMENT AND PLAN: 1. Left ear cellulitis - CT scan of temporal bone/face shows soft tissue swelling. No acute abnormality on CXR. Sepsis workup done and wound culture sent. Patient being treated with IV Clindamycin, IV Ceftriaxone and Ciprofloxacin ear drop. Consult ID and ENT and provide daily wound care of ear lobe. EKG shows NSR at 67/minute and QTc 422 with no significant acute ischemic ST-T wave changes. 2. DVT prophylaxis - Lovenox 40 mg SQ q 24 hours. 3. Advance directives - Full code
--- NOTE | 2020-07-01 21:49 | HP ---
CHIEF COMPLAINT: b/l ear drainage and pain PCP: Ernesto Cyr HISTORY OF PRESENT ILLNESS: 60 y.o. F PMH HLD, glaucoma presenting to the ED for persistent b/l ear purulence and pain (R>L). Patient states 1 month ago she tripped and fell, and subsequently landed on her right side, then her left side, sustaining lacerations to both ears. When I asked her to clarify how she fell onto both sides she stated " I just did and don't know how". At that time 1 mo ago she went to an ED and had her ears bilaterally sutured. 3 weeks ago she had the sutures removed. A few days after suture removal she began to experience b/l ear edema and erythema. Later on that week she began to notice purulent drainage on her pillow when she woke up from sleep and has been continuing to notice and increased amount of drainage for the past 2-3 weeks. On 06/26 (5 days ago) pt went to [facility] ED where she was given 1 dose IV vancomycin and sent home with Clindamycin 300mg TID which she has been taking daily and naproxen 500mg BID PRN. Her symptoms did not resolve so she came to our ED today. Denies any hearing deficits. ROS: + R ear pain Denies headache/ vision changes/ hearing deficit/ dizziness/ lightheadedness/ CP/ SOB/ fevers/ chills/ nausea/ vomiting/ diarrhea/ constipation ER course was notable for: (1) 1g Vanc (2) CT temproal bones: R earlobe soft tissues suggesting cellulitis (imaging product consultant read) (3) Recent Travel: denies PAST MEDICAL HISTORY: HLD, glaucoma PAST SURGICAL HISTORY: Right rotator cuff repair 2014 colonoscopy 2 yrs ago normal Social History: Smoking: denies Alcohol:denies Drugs: denies Allergies Tetanus Vaccines and Toxoid [Tetanus] Allergy (Verified 07/01/20 12:01) Hives Family hx: mom HTN, dad eczema HOME MEDICATIONS: Home Medications Medication Instructions Recorded Pravastatin Sodium 20 mg PO DAILY 08/19/17 PHYSICAL EXAMINATION Vital Signs - 24 hr 07/01/20 07/01/20 12:01 20:58 Temperature 97.7 F Pulse Rate 78 Pulse Rate [ 69 Left] Respiratory 18 18 Rate Blood Pressure 111/67 Blood Pressure 93/63 [Right Arm] O2 Sat by Pulse 98 100 Oximetry (%) GENERAL: Awake, alert, and fully oriented, in no acute distress. HEEN: B/l ears have open healing wound to area between earlobe & facial skin. B/l ears w/ surrounding erythema to posterior lobe with warmth and exterior clear drainage. On otoscope exam, R ear edematous and unable to fully place otoscope to visualize tympanic membrane however copious white purulence noted inside and around ear, exam also limited to pain. Left ear with copious white purulence, obscuring tympanic membrane. Throat: Areas of hyperpigmentation to tongue & hard palate. No exudates noted. Oropharynx nonerythematous. NECK: Normal range of motion, supple without lymphadenopathy. LUNGS: CTABL. No w/r/r. Symmetrical chest rise. HEART: Regular rate and rhythm, normal S1 and S2 no m/r/g ABDOMEN: Soft, nontender, not distended, normoactive bowel sounds, no guarding, no rebound, no masses. MUSCULOSKELETAL: Normal range of motion at all joints. EXTREMITIES: 2+ pulses, warm, well-perfused. No calf tenderness. No peripheral edema. NEUROLOGICAL: Cranial nerves II-XII intact. Normal speech. Gait not observed PSYCHIATRIC: Cooperative. Good eye contact. Appropriate mood and affect. SKIN: Warm, dry, normal turgor, no rashes or lesions noted, normal capillary refill. Laboratory Results - last 24 hr 07/01/20 07/01/20 13:52 13:52 WBC 6.0 RBC 4.19 Hgb 13.5 Hct 40.2 MCV 95.9 MCH 32.3 MCHC 33.7 RDW 13.1 Plt Count 184 D MPV 8.8 Absolute Neuts (auto) 3.6 Neutrophils % 59.7 Lymphocytes % 24.9 Monocytes % 9.3 Eosinophils % 5.3 H D Basophils % 0.8 Nucleated RBC % 0 Sodium 140 Potassium 4.8 Chloride 108 H Carbon Dioxide 29 Anion Gap 4 L BUN 12.4 Creatinine 0.6 Est GFR (CKD-EPI)AfAm 113.22 Est GFR (CKD-EPI)NonAf 97.69 Random Glucose 80 Calcium 8.8 Total Bilirubin 1.0 AST 40 H ALT 33 Alkaline Phosphatase 114 Total Protein 7.1 Albumin 3.4 ASSESSMENT/PLAN: 60 y.o. F PMH HLD, glaucoma presenting to the ED for persistent b/l ear purulence and pain. Admitted for b/l ear cellulitis #Bilateral ear cellulitis -s/p 5 days PO clindamycin 300mg TID with no improvement of symptoms -Imaging product consultant read for temporal bone CT showing right earlobe cellulitis -Wound culture from right ear sent, f/u bacterial growth -For abx administer topical AU ofloxacin drops, 10 drops BID for 14 days -Clindamycin 600mg q6h and Rocephin 1g daily -ID consulted, Dr. Rodarte -ENT consulted, Dr. Infante #HKD -continue home statin #Glaucoma -continue home dose acetazolamide 125mg daily #FEN -no standing fluids -monitor & replete lytes as needed -low fat diet #PPX -LVX 40 sq #Dispo monitor on med surg Family Medical History Family History: As Documented Visit type - Emergency Visit Emergency Visit: Yes ED Registration Date: 07/01/20 Care time: The patient presented to the Emergency Department on the above date and was hospitalized for further evaluation of their emergent condition. - New Patient This patient is new to me today: Yes Date on this admission: 07/02/20 - Critical Care Critical Care patient: No ATTENDING PHYSICIAN STATEMENT I saw and evaluated the patient. I reviewed the resident's note and discussed the case with the resident. I agree with the resident's findings and plan as documented. SUBJECTIVE: OBJECTIVE: ASSESSMENT AND PLAN:
--- OUTSIDE RECORDS SUMMARY | 2020-07-01 22:11 | XMS ---
:1960 Author Organization [facility] Care Team Providers Name Role Phone ED [...] is protected by Article 27-F of the [facility] Public Health law. If you continue you may haveaccess to information: Regarding HIV / AIDS; Provided by facilities licensed or operated by the [facility] Office of Mental Health; or Provided by the [facility] Office for People With Developmental Disabilities. If such information is present, then the following [facility] mandated warning applies: This information has [...] law may result in a fine or senior care sentence or both. A general authorization for the release of medical or other information is NOT sufficient authorization for further disclosure. Encounters Encounter Providers Location Date Indications Data Source(s ) Emergency Attender: ED STAFF H 06/26/2020 [facility] PHYSICIANAttender: 02:10:00 PM [facility] al Center STAFF ED STAFF EDT - PHYSICIANAdmitter: ED 06/26/2020 STAFF 07:03:00 PM PHYSICIANReferrer: EDT ZUNASSIGNED Patient discharged. Insurance Providers Payer name Policy type Policy ID Covered Covered green party's Policy P jaci / Coverage green party ID relationship to [place] [employer] ormation type [place] UNITED [id number] SP [id number] HEALTHCARE (MEDICARE) UNITED [id number] 01 [id number] HEALTHCARE MCARE OPD COMPUTER W [id number] 01 [id number] [employer] [place] W [id number] HEALTHCARE COMMUNITY PLAN [facility] [id number] SP [id number] [facility] [place] MEDICARE [id number] SP [id number] HIP MEDICAID [id number] SP [id number] HEALTH [id number] SP [id number] SOLUTIONS MEDICARE HEALTH SP SOLUTIONS [place] [id number] SP [id number] HEALTHCARE (MEDICARE) HEALTH [id number] SP [id number] SOLUTIONS [place] [id number] HEALTHCARE HMO [place] [id number] PT [id number] HEALTHCARE [facility] Medicare-Blue [id number] S [id number] Cross/Blue Shield Medicare [id number] S [id number] [employer] Dental [id number] S [id number] [employer] [place] Medicaid HIP Medicaid [id number] S [id number] Managed Care HIP Prime HMO [id number] Medicaid [id number] S [id number] Regular Clinic Visit Problems, Conditions, and Diagnoses Code Display Name Description Problem Type Effective Dates Data Source(s) H60.11 Cellulitis of CELLULITIS OF Diagnosis 06/26/2020 [facility] right external ear RIGHT EXTERNAL 02:10:00 PM E [facility] EAR H92.09 Otalgia, OTALGIA, Diagnosis 06/26/2020 [facility] unspecified ear UNSPECIFIED EAR 02:10:00 PM EDT [facility] Results ID Date Data Source [id number] 06/26/2020 04:00:00 PM EDT [facility] 400 Name Value Range Interpretation Code Description Data Alyssa rce(s) Supporting Document(s ) UNK <item><content [facility] styleCode="Bold"> Medical [facility] er Culture Status </content>
<t able><tbody><tr>< td>Specimen Number:</td><td>[id number]</td></tr ><tr><td>Sample Collection Date/Time: </td><td> 0 4:00 PM</td></tr><tr>< td>Specimen Source:</td><td>B LOOD</td></tr><tr ><td>Blood Culture:</td><td> Collection Plate Date: 06/26/2020 16:10 </td></tr><tr><td >Culture Report:</td><td>C ulture in progress </td></tr><tr><td >Culture Status:</td><td>P reliminary </td></tr></tbody ></table></item> UNK <item><content [facility] styleCode="Bold"> Medical Cent er Culture Report </content>
<t able><tbody><tr>< td>Specimen Number:</td><td>[id number]</td></tr ><tr><td>Sample Collection Date/Time: </td><td> 0 4:00 PM</td></tr><tr>< td>Specimen Source:</td><td>B LOOD</td></tr><tr ><td>Blood Culture:</td><td> Collection Plate Date: 06/26/2020 16:10 </td></tr><tr><td >Culture Status:</td><td>P reliminary </td></tr><tr><td >Culture Report:</td><td>C ulture in progress </td></tr></tbody ></table></item> ID Date Data Source [id number] 06/26/2020 03:45:00 PM EDT [facility] 400 Name Value Range Interpretation Code Description Data Alyssa rce(s) Supporting Document(s ) UNK <item><content [facility] styleCode="Bold"> Medical [facility] Culture Report </content>
<t able><tbody><tr>< td>Specimen Number:</td><td>[id number]</td></tr ><tr><td>Sample Collection Date/Time: </td><td> 0 3:45 PM</td></tr><tr>< td>Specimen Source:</td><td>B LOOD</td></tr><tr ><td>Blood Culture:</td><td> Collection Plate Date: 06/26/2020 15:55 </td></tr><tr><td >Culture Status:</td><td>P reliminary </td></tr><tr><td >Culture Report:</td><td>C ulture in progress </td></tr></tbody ></table></item> UNK <item><content [facility] styleCode="Bold"> Medical Cent er Culture Status </content>
<t able><tbody><tr>< td>Specimen Number:</td><td>[id number]</td></tr ><tr><td>Sample Collection Date/Time: </td><td> 0 3:45 PM</td></tr><tr>< td>Specimen Source:</td><td>B LOOD</td></tr><tr ><td>Culture Report:</td><td>C ulture in progress </td></tr><tr><td >Culture Status:</td><td>P reliminary </td></tr><tr><td >Blood Culture:</td><td> Collection Plate Date: 06/26/2020 15:55 </td></tr></tbody ></table></item> ID Date Data Source [id number] 06/26/2020 03:15:00 PM EDT [facility] 0400 Name Value Range Interpretation Description [...] > Erythrocyte 11.5-14. <content [facility] styleCode="Armin [place]rier width [Ratio] by ">Red Cell Medical Automated count Distribution Center Width </content>12.9 %<content styleCode="Ital ics"> (11.5-14.5 %)</content> UNK 0.0 <content [facility] styleCode="Bold Cherrie ">Nucleated Red Medical Blood Cell Center Count </content>0.00 KCUMM<content styleCode="Ital ics"> (0.0 KCUMM)</content > ID Date Data Source GFR(Creatinine).[id number] 06/26/2020 03:15:00 PM EDT [facility] 0-0400 Name Value Range Interpretation Code Description Data Alyssa rce(s) Supporting Document(s ) UNK > 60 <content [facility] styleCode="Bold"> Medical Cent er EGFR </content>109 GFR<content styleCode="Italic s"> (> 60 GFR)</content> ID Date Data Source [id number] 06/26/2020 03:15:00 PM EDT [facility] Name Value Range Interpretation Description Data Sup [...] (74-106 MG/DL)</conten t> ID Date Data Source [id number] 06/05/2020 10:30:00 AM EDT [facility] Name Value Range Interpretation Code Description Data Alyssa rce(s) Supporting Document(s ) COV2 [facility] This lab was ordered by MONY CORDOBA and reported by [facility] Cory Ramírez. ID Date Data Source [id number] 01/16/2020 12:00:00 AM EDT [facility] Name Value Range Interpretation Code Description Data Alyssa rce(s) Supporting Document(s ) 2019-nCoV [facility] RNA XXX LETICIA+probe- Imp This lab was ordered by [facility] and reported by [employer] Procedure Social History Code Duration Value Status Description Data Source(s ) Smoking 06/26/2020 Denies Ever completed Denies Ever Smoked [facility] 02:57:00 PM EDT [facility] Smoking 06/26/2020 Denies Ever completed Denies Ever Smoked [facility] 02:34:00 PM EDT [facility] Vital Signs ID Date Data Source UNK Name Value Range Interpretation Code Description Data Source(s) Body temperature 37.976864 37.993986 [facility] Respiratory rate 18 /min 18 /min [facility] Oxygen saturation 98 % 98 % [facility] osephs in Arterial blood [facility] by Pulse oximetry Heart rate 80 /min 80 /min [facility] Diastolic blood 70 mm[Hg] 70 mm[Hg] [facility] Systolic blood 110 mm[Hg] 110 mm[Hg] [facility] Respiratory rate 18 /min 18 /min [facility] Oxygen saturation 99 % 99 % [facility] osephs in [facility] by Pulse oximetry Heart rate 97 /min 97 /min [facility] Body height 167.136961 167.025509 cm [facility] [place] Diastolic blood 65 mm[Hg] 65 mm[Hg] [facility] Systolic blood 111 mm[Hg] 111 mm[Hg] [facility] Body mass index 28.3 kg/m2 28.3 kg/m2 [facility] (BMI) [Ratio] Medical [facility]ra ter Body weight 80.791465 kg 80.039478 kg [facility] Body temperature 36.403812 36.443443 [facility]
[2020-07-01] MEDS ORDERED: cefTRIAXone SODIUM 1 GM VIAL ONE (22:27)
[2020-07-01] MEDS ORDERED: DEXTROSE 5%-WATER - 50 ML IVPB ONE (22:28)
[2020-07-01] MEDS: ACETAMINOPHEN 325 MG TABLET (FP) PO PRN (22:34)
[2020-07-01] MEDS: CEFTRIAXONE 1 GM in DEXTROSE 5%-WATER - 50 ML IVPB SCH (22:34)
[2020-07-01] MEDS: CLINDAMYCIN 600MG PREMIX IVPB 600 MG/50 ML BAG IVPB SCH (23:45)
[2020-07-02 00:15] VITALS: BMI 28.8
[2020-07-02] MEDS: OFLOXACIN 0.3% OTIC SOLUTION 5 ML BOTTLE AU SCH ×3 (00:45→21:05)
[2020-07-02] MEDS: CLINDAMYCIN 600MG PREMIX IVPB 600 MG/50 ML BAG IVPB SCH ×4 (03:37→20:04)
[2020-07-02 04:14] LABS: URINE APPEARANCE CLEAR; URINE BILIRUBIN NEGATIVE (NEGATIVE); URINE COLOR YELLOW; URINE GLUCOSE (UA) NEGATIVE (NEGATIVE); URINE KETONE NEGATIVE (NEGATIVE); URINE LEUK ESTERASE NEGATIVE (NEGATIVE); URINE NITRITE NEGATIVE (NEGATIVE); URINE PROTEIN NEGATIVE (NEGATIVE); URINE UROBILINOGEN 0.2 mg/dL (0.2-1.0)
[2020-07-02 07:33] LABS: BASO % 0.6 % (0-2.0); EOS % 16.2 % (0-4.5); HEMATOCRIT 37.5 % (32.4-45.2); HEMOGLOBIN 12.6 GM/dL (10.7-15.3); LYMPH % 22.1 % (8-40); MCH 32.2 pg (25.7-33.7); MCHC 33.5 g/dl (32.0-36.0); MEAN CELL VOLUME 96.2 fl (80-96); MEAN PLT VOLUME 8.8 fl (7.5-11.1); MONO % 7.5 % (3.8-10.2); NEUT % 53.6 % (42.8-82.8); PLATELET COUNT 175 K/MM3 (134-434); RDW 12.7 % (11.6-15.6); WHITE BLOOD COUNT 5.4 K/mm3 (4.0-10.0)
[2020-07-02 08:04] LABS: ALBUMIN 3.2 g/dl (3.4-5.0); BILIRUBIN,TOTAL 0.6 mg/dL (0.2-1); BLOOD UREA NITROGEN 13.2 mg/dL (7-18); CREATININE 0.6 mg/dL (0.55-1.3); MAGNESIUM 2.2 mg/dL (1.8-2.4); PHOSPHOROUS 3.3 mg/dL (2.5-4.9); POTASSIUM 3.8 mmol/L (3.5-5.1); TOT PROT 6.2 g/dl (6.4-8.2)
[2020-07-02 08:24] LABS: CALCIUM 8.5 mg/dL (8.5-10.1)
[2020-07-02] MEDS ORDERED: cefTRIAXone SODIUM 1 GM VIAL ONE (09:06)
[2020-07-02] MEDS ORDERED: DEXTROSE 5%-WATER - 50 ML IVPB ONE (09:07)
[2020-07-02] MEDS: BACITRACIN 15 GM TUBE TOPICAL OINTMENT TP SCH (09:30)
[2020-07-02] MEDS: CEFTRIAXONE 1 GM in DEXTROSE 5%-WATER - 50 ML IVPB SCH (09:40)
[2020-07-02] MEDS: ACETAMINOPHEN 325 MG TABLET (FP) PO PRN ×2 (09:41→16:21)
[2020-07-02] MEDS: ENOXAPARIN NA (PORCINE) 40 MG/0.4 ML DISP.SYRIN SQ SCH (09:52)
--- NOTE | 2020-07-02 10:03 | PN ---
Progress Note (short form) - Note Progress Note: S: Patient reports that she fell down due to losing her balance and then fell again causing lacerations to both of her ears. Patient received care and then 1 day later patient started to feel swelling and discomfort at the sites. Patient symptoms progressed and she noticed purulent drainage R>L at one point which is why she sought outpatient antibiotics. Patient came to the hospital because the drainage was worsening and her edema was spreading. Currently patient has discomfort in the areas of edema. She denies any fevers/chills, abdominal pain, diarrhea, tooth pain and problems. Only medication allergy is tetanus vaccine/toxoid Vital Signs Temperature 97.7 F 07/02/20 04:48 Pulse Rate 67 07/02/20 04:48 Respiratory Rate 18 07/02/20 04:48 Blood Pressure 107/63 07/02/20 04:48 O2 Sat by Pulse Oximetry (%) 97 07/02/20 04:48 PE Gen: NAD, awake, alert, oriented HEENT: NC, R anterior auricular purulent drainage with edema spreading to zygomatic arch, no TTP with pinna manipulation, hearing intact b/l, L anterior auricular minimal drainage noted without marked edema. GARRETT, sclera anicteric, dentures bottom teeth without any oral ulcers/lesions NECK: no JVD LUNG: CTA b/l without wheezes or rales. On RA CARD: RRR no murmurs appreciated ABD: Soft, Nt/ND, no guarding or rebound EXT: no calf tenderness, no edema CBC, BMP 07/02/20 07:05 07/02/20 07:05 Active Medications Acetaminophen (Tylenol -) 650 mg PO Q4H PRN PRN Reason: PAIN LEVEL 6-10 Last Admin: 07/02/20 09:41 Dose: 650 mg Documented by: Acetazolamide (Diamox -) 125 mg PO DAILY [facility] Atorvastatin Calcium (Lipitor -) 10 mg PO HS [facility] Bacitracin (Bacitracin -) 1 applic TP DAILY [facility] Enoxaparin Sodium (Lovenox -) 40 mg SQ DAILY [facility] Last Admin: 07/02/20 09:52 Dose: 40 mg Documented by: Clindamycin Phosphate (Cleocin 600 Mg Premix Ivpb -) 600 mg in 50 mls @ 100 mls/hr IVPB Q6H-IV [facility]; Protocol Last Admin: 07/02/20 09:43 Dose: 100 mls/hr Documented by: Ceftriaxone Sodium 1 gm/ (Dextrose) 50 mls @ 100 mls/hr IVPB DAILY [facility]; Protocol Last Admin: 07/02/20 09:40 Dose: 100 mls/hr Documented by: Ofloxacin (Floxin Otic (Ear) Solution -) 10 drop AU BID [facility] Stop: 07/15/20 21:59 Last Admin: 07/02/20 09:39 Dose: 10 drop Documented by: Assessment and Plan: Otitis Externa with failure of outpatient antibiotics History of HLD History of HTN --Drainage cultures pending --Patient receiving fluoroquinolone ear drops AU BID --Rocephin 1gm daily --Clindamycin q6h --ID consulted and appreciate recommendations --Imaging reviewed with soft tissue edema/inflammation without any other complications --Continue home medications Dispo: continue M/S Blair Alvarado DO - IM
[2020-07-02 10:07] LABS: ANISOCYTOSIS 1+; MACROCYTOSIS 0; PLATELET ESTIMATE NORMAL
--- NOTE | 2020-07-02 12:08 | CON.ID ---
Consult - History of Present Illness History of Present Illness: 60 y.o. female with PMH of HLD and glaucoma presents with c/o Rt ear pain and drainage worsening over the past few weeks. She reports that she had a fall one month ago and sustained b/l ear lacerations which were sutured in an ER and was discharged on PO antibiotics (does not remember name). She had sutures removed as an outpt but she states she developed pain/redness and purulent drainage R>L a few days after. She was given a dose of Vancomycin in the ER and sent home on 06/26/20 on Augmentin and Naprosyn which she has been taking and also applying Bacitracin ointment however she had persistent/worsening pain in Rt ear with yellow drainage and mild drainage without tenderness in the Lt ear and came to [facility]. In the ER, she was noted to have swelling and tenderness with purulent drainage from the Rt ear. She denies any hearing impairment in her ears since developing the other symptoms or any recent fever/chills/facial pain, ?Rt facial edema. She had no other specific complaints. Final CT results pending but preliminarily without findings suggestive of mastoiditis or abscess. Currently, she states she is feeling better and has less pain, remains afebrile. No other complaints at this time. Lab results reviewed, pt examined. - History Source History Provided By: Patient - Past Medical History PROCEDURES TECH: No: Alzheimer's, CVA, Dementia, Migraine, Multiple Sclerosis, Peripheral Neuropathy, Parkinson's, Seizure, Syncope, TIA, Vertigo, Other Cardio/Vascular: Yes: Hyperlipdemia Pulmonary: No: Asthma, Bronchitis, Cancer, COPD, O2 Dependent, Pneumonia, Previously Intubated, Pulmonary Embolus, Pulmonary Fibrosis, Sleep Apnea, Other Gastrointestinal: No: Ascites, Cancer, Constipation, Crohn's Disease, Diverticulitis, Diverticulosis, Esophageal Varices, Gastritis, GERD, GI Bleed, Hemorrhoids, Hiatal Hernia, Inflamatory Bowel Disease, Irritable Bowel Disease, Pancreatitis, Peptic Ulcer Disease, Ulcerative Colitis, Other Hepatobiliary: No: Cirrhosis, Cholelithiasis, Cholecystitis, Choledocholithiasis, Hepatitis A, Hepatitis B, Hepatitis C, Other Renal/: No: Renal Failure, Renal Inusuff, BPH, Cancer, Hematuria, Hemodialysis, Neurogenic Bladder, Renal Calculi, UTI, Other Reproductive: No: Ectopic , Endometriosis, Fibroids, PID, Polycystic Ovary Syndrome, Postmenopausal, Other ...: No Heme/Onc: No: Anemia, B12 Deficiency, Bleeding Disorder, Cancer, Current Chemotherapy, Current Radiation Therapy, Hemochromatosis, Hypercoaguable State, Myeloproliferative Synd, Sickle Cell Disease, Sickle Cell Trait, Thrombocytopenia, Other Infectious Disease: No: AIDS, C-Diff, Herpes Zoster, HIV, MRSA, STD's, Tuberculosis, VREF, Other Psych: No: Addictions, Anxiety, Bipolar, Depression, Panic, Psychosis, Schizophrenia, Other Musculoskeletal: No: Bursitis, Chronic low back pain, Hemiparesis, Hemiplegia, Osteoarthritis, Paraplegia, Other Rheumatology: No: Fibromyalgia, Gout, Lupus, Rheumatoid Arthritis, Sarcoidosis, Vasculitis, Other ENT: Yes: Other (Rt otitis with edema) Endocrine: No: Drew's Disease, Wojciech's Disease, Diabetes Insipidus, Diabetes Mellitus, Hyperparathyroidism, Hyperthyroidism, Hypothyroidism, Osteopenia, SIADH, Other Dermatology: No: Basal Cell, Cellulitis, Eczema, Melanoma, Psoriasis, Squamous Cell, Other - Past Surgical History Past Surgical History: No: None, AAA Repair, AICD, Amputation, Appendectomy, Arthrosocopy, AV Fistula/Graft, Bariatric Surgery, Breast Biopsy, Bypass, CABG, Carotid Endarterectomy, Cataract Removal, Cholecystectomy, Colectomy, Colonoscopy, Colostomy, Craniotomy, , Cystectomy, Hernia Repair, Hysterectomy, Ileal Conduit, Ileosotomy, Joint Replacement, Kidney Transplant, Laminectomy, Liver Transplant, Mastectomy, Nephrectomy, Oopherectomy, Orchiectomy, Permanent Pacemaker, Prostatectomy, Splenectomy, Stent, Thoracotomy, TURP, Tonsillectomy, Tubal Ligation, Upper Endoscopy, Valve Replacement, Vasectomy, Vein Stripping/Ligation - Alcohol/Substance Use Hx Alcohol Use: No - Smoking History Smoking history: Never smoked Have you smoked in the past 12 months: No Aproximately how many cigarettes per day: 0 Home Medications - Allergies Allergies/Adverse Reactions: Allergies Allergy/AdvReac Type Severity Reaction Status Date / Time Tetanus Vaccines and Toxoid Allergy Hives Verified 07/01/20 12:01 [Tetanus] - Home Medications Home Medications: Ambulatory Orders Pravastatin Sodium 20 mg PO DAILY 08/19/17 Acetazolamide 125 mg PO DAILY 07/01/20 Review of Systems - Review of Systems Constitutional: reports: No Symptoms Eyes: reports: No Symptoms HENT: reports: Ear Discharge, Ear Pain (less) Neck: reports: No Symptoms Cardiovascular: reports: No Symptoms Respiratory: reports: No Symptoms Gastrointestinal: reports: No Symptoms Genitourinary: reports: No Symptoms Breasts: reports: No Symptoms Reported Musculoskeletal: reports: No Symptoms Integumentary: reports: No Symptoms Neurological: reports: No Symptoms Endocrine: reports: No Symptoms Hematology/Lymphatic: reports: No Symptoms Psychiatric: reports: No Symptoms Physical Exam Vital Signs: Vital Signs Temperature 97.7 F 07/02/20 09:00 Pulse Rate 70 07/02/20 09:00 Respiratory Rate 16 07/02/20 09:00 Blood Pressure 108/55 L 07/02/20 09:00 O2 Sat by Pulse Oximetry (%) 100 07/02/20 09:00 Constitutional: Yes: Well Nourished, No Distress, Calm Eyes: Yes: Conjunctiva Clear, EOM Intact HENT: Yes: Other (Rt earlobe edematous, + d/c from R external ear canal with edema, minimal tenderness Lt earlobe without edema/pain/discharge at this time ? mild Rt facial edema extending from ear, no tenderness) Cardiovascular: Yes: Regular Rate and Rhythm Respiratory: Yes: CTA Bilaterally Gastrointestinal: Yes: Normal Bowel Sounds, Soft Renal/: Yes: WNL Musculoskeletal: Yes: WNL Extremities: Yes: WNL Wound/Incision: Yes: Clean/Dry Neurological: Yes: Alert, Oriented Psychiatric: Yes: Alert Labs: CBC, BMP 07/02/20 07:05 07/02/20 07:05 Microbiology 07/01/20 12:54 Abscess Wound Culture - Preliminary Presumptive Ps Aeruginosa Non Lactose Fermenting Gnb Laboratory Tests 07/01/20 07/01/20 07/01/20 13:52 13:52 13:52 WBC 6.0 RBC 4.19 Hgb 13.5 Hct 40.2 MCV 95.9 MCH 32.3 MCHC 33.7 RDW 13.1 Plt Count 184 D MPV 8.8 Absolute Neuts (auto) 3.6 Neutrophils % 59.7 Neutrophils % (Manual) Band Neutrophils % Lymphocytes % 24.9 Lymphocytes % (Manual) Monocytes % 9.3 Monocytes % (Manual) Eosinophils % 5.3 H D Eosinophils % (Manual) Basophils % 0.8 Basophils % (Manual) Myelocytes % (Man) Promyelocytes % (Man) Blast Cells % (Manual) Nucleated RBC % 0 Metamyelocytes Hypochromia Platelet Estimate Polychromasia Poikilocytosis Anisocytosis Microcytosis Macrocytosis Sodium 140 Potassium 4.8 Chloride 108 H Carbon Dioxide 29 Anion Gap 4 L BUN 12.4 Creatinine 0.6 Est GFR (CKD-EPI)AfAm 113.22 Est GFR (CKD-EPI)NonAf 97.69 Random Glucose 80 Calcium 8.8 Phosphorus Magnesium Total Bilirubin 1.0 AST 40 H ALT 33 Alkaline Phosphatase 114 Total Protein 7.1 Albumin 3.4 Urine Color Urine Appearance Urine pH Ur Specific [place] Urine Protein Urine Glucose (UA) Urine Ketones Urine Blood Urine Nitrite Urine Bilirubin Urine Urobilinogen Ur Leukocyte Esterase HIV 1&2 Ag/Ab, 4th Gen Non reactive 07/02/20 07/02/20 07/02/20 03:30 07:05 07:05 WBC 5.4 RBC 3.90 Hgb 12.6 Hct 37.5 MCV 96.2 H MCH 32.2 MCHC 33.5 RDW 12.7 Plt Count 175 MPV 8.8 Absolute Neuts (auto) 2.9 Neutrophils % 53.6 Neutrophils % (Manual) 63.7 Band Neutrophils % 0.0 Lymphocytes % 22.1 Lymphocytes % (Manual) 24.5 Monocytes % 7.5 Monocytes % (Manual) 6 Eosinophils % 16.2 H D Eosinophils % (Manual) 3.0 Basophils % 0.6 Basophils % (Manual) 0.0 Myelocytes % (Man) 0 Promyelocytes % (Man) 0 Blast Cells % (Manual) 0 Nucleated RBC % 0 Metamyelocytes 0 Hypochromia 0 Platelet Estimate Normal Polychromasia 0 Poikilocytosis 0 Anisocytosis 1+ Microcytosis 1+ Macrocytosis 0 Sodium 141 Potassium 3.8 Chloride 107 Carbon Dioxide 29 Anion Gap 5 L BUN 13.2 Creatinine 0.6 Est GFR (CKD-EPI)AfAm 113.22 Est GFR (CKD-EPI)NonAf 97.69 Random Glucose 90 Calcium 8.5 Phosphorus 3.3 Magnesium 2.2 Total Bilirubin 0.6 AST 19 ALT 24 Alkaline Phosphatase 101 Total Protein 6.2 L Albumin 3.2 L Urine Color Yellow Urine Appearance Clear Urine pH 7.0 Ur Specific [place] 1.041 H Urine Protein Negative Urine Glucose (UA) Negative Urine Ketones Negative Urine Blood Negative Urine Nitrite Negative Urine Bilirubin Negative Urine Urobilinogen 0.2 Ur Leukocyte Esterase Negative HIV 1&2 Ag/Ab, 4th Gen Imaging - Results Chest X-ray: Report Reviewed Cat Scan: Pending Assessment/Plan 60 y.o. female with hx of lacerations in b/l earlobes post fall presenting with c/o worsening Rt earlobe edema/pain and drainage from Rt > Lt ears without hearing impairment despite oral antibiotics as outpt Otitis externa r/o extension to inner ear Periauricular cellulitis ? Rt facial cellulitis s/p b/l earlobe lacerations post fall -- Wound cultures preliminarily + Pseudomonas -- d/c Ceftriaxone, switch to Cipro IV -- continue Clindamycin, ofloxacin drops for now -- follow up final CT results -- ENT evaluation -- low suspicion for COVID- 19, follow up screening results, all precautions in place Will follow up Thank you
[2020-07-02] MEDS ORDERED: PIPERACILLIN/TAZOB 3.375 GM 3.375 GM in DEXTROSE 5%-WATER - 50 ML IVPB SCH (13:00)
[2020-07-02] MEDS ORDERED: PT OWN MED DRAWER 7, Y5N ONE (15:32)
[2020-07-02] MEDS: CIPROFLOXACIN 400 MG/D5W 400 MG/200 ML IVPB IVPB SCH ×2 (15:40→21:04)
[2020-07-02] MEDS: ATORVASTATIN CA 10 MG TABLET (FP) PO SCH (21:32)
--- NOTE | 2020-07-02 21:48 | EKG ---
Test Reason : Blood Pressure : / mmHG Vent. Rate : 067 BPM Atrial Rate : 067 BPM P-R Int : 182 ms QRS Dur : 076 ms QT Int : 400 ms P-R-T Axes : 046 008 -04 degrees QTc Int : 422 ms POOR DATA QUALITY, INTERPRETATION MAY BE ADVERSELY AFFECTED NORMAL SINUS RHYTHM NORMAL ECG WHEN COMPARED WITH ECG OF 12-MAY-2013 16:29, INVERTED T WAVES HAVE REPLACED NONSPECIFIC T WAVE ABNORMALITY IN INFERIOR LEADS Confirmed by Rachel Lentz ([id number]) on 07/02/2020 9:47:59 PM Referred By: Confirmed By:Rachel Lentz
[2020-07-03] MEDS: CLINDAMYCIN 600MG PREMIX IVPB 600 MG/50 ML BAG IVPB SCH ×2 (02:50→09:00)
[2020-07-03] MEDS: BACITRACIN 15 GM TUBE TOPICAL OINTMENT TP SCH (09:07)
[2020-07-03] MEDS: OFLOXACIN 0.3% OTIC SOLUTION 5 ML BOTTLE AU SCH ×2 (09:08→21:13)
[2020-07-03] MEDS: ENOXAPARIN NA (PORCINE) 40 MG/0.4 ML DISP.SYRIN SQ SCH (09:08)
[2020-07-03] MEDS: CIPROFLOXACIN 400 MG/D5W 400 MG/200 ML IVPB IVPB SCH ×2 (10:06→21:13)
--- NOTE | 2020-07-03 10:08 | PN ---
Progress Note, Physician History of Present Illness: still draining quite a bit awaiting identification of organism pseudomonas - Current Medication List Current Medications: Active Medications Acetaminophen (Tylenol -) 650 mg PO Q4H PRN PRN Reason: PAIN LEVEL 6-10 Last Admin: 07/02/20 16:21 Dose: 650 mg Documented by: Acetazolamide (Diamox -) 125 mg PO DAILY@1800 [facility] Last Admin: 07/02/20 17:57 Dose: 125 mg Documented by: Atorvastatin Calcium (Lipitor -) 10 mg PO HS [facility] Last Admin: 07/02/20 21:32 Dose: 10 mg Documented by: Bacitracin (Bacitracin -) 1 applic TP DAILY [facility] Last Admin: 07/03/20 09:07 Dose: 1 applic Documented by: Enoxaparin Sodium (Lovenox -) 40 mg SQ DAILY [facility] Last Admin: 07/03/20 09:08 Dose: 40 mg Documented by: Ciprofloxacin/Dextrose (Cipro 400 Mg Premix Ivpb (Restricted To Id)) 400 mg in 200 mls @ 200 mls/hr IVPB BID [facility] Last Admin: 07/03/20 10:06 Dose: 200 mls/hr Documented by: Ofloxacin (Floxin Otic (Ear) Solution -) 10 drop AU BID [facility] Stop: 07/15/20 21:59 Last Admin: 07/03/20 09:08 Dose: 10 drop Documented by: - Objective Vital Signs: Vital Signs Temperature 97.7 F 07/03/20 06:00 Pulse Rate 72 07/03/20 06:00 Respiratory Rate 18 07/03/20 06:00 Blood Pressure 107/60 07/03/20 06:00 O2 Sat by Pulse Oximetry (%) 100 07/03/20 06:00 Constitutional: Yes: Calm, Mild Distress Cardiovascular: Yes: S1, S2 Respiratory: Yes: Regular, CTA Bilaterally Gastrointestinal: Yes: Normal Bowel Sounds, Soft Musculoskeletal: Yes: WNL Extremities: Yes: WNL Wound/Incision: Yes: Dressing Dry and Intact Neurological: Yes: Alert, Oriented Psychiatric: Yes: Alert, Oriented Labs: CBC, BMP 07/02/20 07:05 07/02/20 07:05 Assessment/Plan 60 y.o. female with hx of lacerations in b/l earlobes post fall presenting with c/o worsening Rt earlobe edema/pain and drainage from Rt > Lt ears without hearing impairment despite oral antibiotics as outpt Otitis externa r/o extension to inner ear Periauricular cellulitis ? Rt facial cellulitis s/p b/l earlobe lacerations post fall -- Wound cultures preliminarily + Pseudomonas -will stop clinda evaluation by ent wound care rest as per the team
--- NOTE | 2020-07-03 13:31 | PN ---
Teaching Attending Note Name of Resident: Keyshawn Mcdonald ATTENDING PHYSICIAN STATEMENT I saw and evaluated the patient. I reviewed the resident's note and discussed the case with the resident. I agree with the resident's findings and plan as documented. SUBJECTIVE: Seen and examined at bedside. Patient denies pain of the ears, fevers, chills, shortness of breath, chest pain, hearing loss. Wound culture positive for Pseudomonas and Serratia both sensitive to Levaquin OBJECTIVE Last Vital Signs Temp Pulse Resp BP Pulse Ox 98.2 F 72 18 107/60 100 07/03/20 10:00 07/03/20 06:00 07/03/20 09:00 07/03/20 06:00 07/03/20 10:00 PE: Per resident note Labs/Imaging: reviewed ASSESSMENT/PLAN 60-year-old female past medical history of HLD, glaucoma presents with bilateral ear purulence and pain, admitted for otitis media externa. #Otitis media externa Cultures show Pseudomonas and Serratia both sensitive to Levaquin ID on board: Appreciate recommendations ENT consulted: Pending recommendations Currently on ciprofloxacin IV and ofloxacin eardrops #HLD Continue statin #History of glaucoma Continue acetazolamide
--- NOTE | 2020-07-03 16:33 | PN ---
Physical Exam: SUBJECTIVE: Patient seen and examined at bedside. Resting comfortably. Denies any pain around ears. OBJECTIVE: Vital Signs Period Temp Pulse Resp BP Sys/Arellano Pulse Ox Last 24 Hr 97.4 F-98.2 F 71-76 18-20 107-108/60-68 98-100 GENERAL: NAD HEAD: Normal with no signs of trauma. EYES: EOMI Sclera Clear ENT: Right ear purulent drainage. No pain elicited when pinna pulled. Left ear with slight purulence as well. Pinna nontender. LUNGS: Breath sounds equal. CTAB. No wheezing. On RA HEART: RRR S1S2 no MRG ABDOMEN: Soft, NDNT EXTREMITIES: No CCE NEUROLOGICAL: Cranial nerves II through XII grossly intact. SKIN: Warm, dry, normal turgor, no rashes or lesions noted Active Medications Generic Name Dose Route Start Last Admin Trade Name Freq PRN Reason Stop Dose Admin Acetaminophen 650 mg 07/01/20 21:49 07/02/20 16:21 Tylenol - PO 650 mg Q4H PRN Administration PAIN LEVEL 6-10 Acetazolamide 125 mg 07/02/20 18:00 07/02/20 17:57 Diamox - PO 125 mg DAILY@1800 [facility] Administration Atorvastatin Calcium 10 mg 07/02/20 22:00 07/02/20 21:32 Lipitor - PO 10 mg HS [facility] Administration Bacitracin 1 applic 07/02/20 10:00 07/03/20 09:07 Bacitracin - TP 1 applic DAILY [facility] Administration Enoxaparin Sodium 40 mg 07/02/20 10:00 07/03/20 09:08 Lovenox - SQ 40 mg DAILY [facility] Administration Ciprofloxacin/Dextrose 400 mg in 200 mls @ 200 mls/hr 07/02/20 14:30 07/03/20 10:06 Cipro 400 Mg Premix Ivpb (Restricted To Id) IVPB 200 mls/hr BID [facility] Administration Ofloxacin 10 drop 07/01/20 22:00 07/03/20 09:08 Floxin Otic (Ear) Solution - AU 07/15/20 21:59 10 drop BID [facility] Administration ASSESSMENT/PLAN: 60 y.o. F PMH HLD, glaucoma presenting to the ED for persistent b/l ear purulence and pain. Admitted for b/l ear cellulites #Bilateral ear cellulites/Otitis Externa -Clinda D/C'ed by ID in light of cultures + for Pseudomonas and Serratia M. -Imaging it infrastructure consultant read for temporal bone CT showing right earlobe cellulites -Wound culture from right ear sent---> + Serratia and pseudomonas -On ofloxacin ear drops and Cipro IV. Cultures are sensitive to Levaquin -ID consulted. Recs appreciated -ENT consulted. Recs appreciated #HLD -continue home statin #Glaucoma -continue home dose acetazolamide 125mg daily #FEN -no standing fluids -monitor & replete lytes as needed -low fat diet #PPX -LVX 40 sq #Dispo med surg Visit type - Emergency Visit Emergency Visit: Yes ED Registration Date: 07/01/20 Care time: The patient presented to the Emergency Department on the above date and was hospitalized for further evaluation of their emergent condition. - New Patient This patient is new to me today: No - Critical Care Critical Care patient: No - Discharge Referral Referred to [facility] No ATTENDING PHYSICIAN STATEMENT I saw and evaluated the patient. I reviewed the resident's note and discussed the case with the resident. I agree with the resident's findings and plan as documented. SUBJECTIVE: OBJECTIVE: ASSESSMENT AND PLAN:
[2020-07-03] MEDS ORDERED: BISACODYL 10 MG SUPP.RECT PR ONE (17:04)
[2020-07-03] MEDS: POLYETHYLENE GLYCOL 3350 119 GM BTL PO SCH (17:07)
[2020-07-03] MEDS ORDERED: PT OWN MED DRAWER 7, Y5N ONE (21:06)
[2020-07-03] MEDS: ATORVASTATIN CA 10 MG TABLET (FP) PO SCH (21:13)
[2020-07-04 08:38] LABS: HEMOGLOBIN 14.3 GM/dL (10.7-15.3); MEAN PLT VOLUME 9.1 fl (7.5-11.1); PLATELET COUNT 186 K/MM3 (134-434); RBC 4.32 M/mm3 (3.60-5.2); RDW 12.9 % (11.6-15.6); WHITE BLOOD COUNT 5.2 K/mm3 (4.0-10.0)
[2020-07-04 08:59] LABS: BLOOD UREA NITROGEN 10.5 mg/dL (7-18); CALCIUM 8.5 mg/dL (8.5-10.1); CREATININE 0.7 mg/dL (0.55-1.3); MAGNESIUM 2.2 mg/dL (1.8-2.4); PHOSPHOROUS 3.2 mg/dL (2.5-4.9); POTASSIUM 4.4 mmol/L (3.5-5.1)
[2020-07-04] MEDS ORDERED: PT OWN MED DRAWER 7, Y5N ONE ×2 (10:08→22:45)
[2020-07-04] MEDS: CIPROFLOXACIN 400 MG/D5W 400 MG/200 ML IVPB IVPB SCH ×2 (10:22→22:46)
[2020-07-04] MEDS: BACITRACIN 15 GM TUBE TOPICAL OINTMENT TP SCH (10:31)
[2020-07-04] MEDS: OFLOXACIN 0.3% OTIC SOLUTION 5 ML BOTTLE AU SCH ×2 (10:31→22:49)
[2020-07-04] MEDS: ENOXAPARIN NA (PORCINE) 40 MG/0.4 ML DISP.SYRIN SQ SCH (10:34)
[2020-07-04] MEDS: POLYETHYLENE GLYCOL 3350 119 GM BTL PO SCH (11:13)
--- NOTE | 2020-07-04 13:21 | PN ---
Progress Note, Physician History of Present Illness: still draining quite a bit pain - Current Medication List Current Medications: Active Medications Acetaminophen (Tylenol -) 650 mg PO Q4H PRN PRN Reason: PAIN LEVEL 6-10 Last Admin: 07/02/20 16:21 Dose: 650 mg Documented by: Acetazolamide (Diamox -) 125 mg PO DAILY@1800 [facility] Last Admin: 07/03/20 17:04 Dose: 125 mg Documented by: Atorvastatin Calcium (Lipitor -) 10 mg PO HS [facility] Last Admin: 07/03/20 21:13 Dose: 10 mg Documented by: Bacitracin (Bacitracin -) 1 applic TP DAILY [facility] Last Admin: 07/04/20 10:31 Dose: 1 applic Documented by: Enoxaparin Sodium (Lovenox -) 40 mg SQ DAILY [facility] Last Admin: 07/04/20 10:34 Dose: 40 mg Documented by: Ciprofloxacin/Dextrose (Cipro 400 Mg Premix Ivpb (Restricted To Id)) 400 mg in 200 mls @ 200 mls/hr IVPB BID [facility] Last Admin: 07/04/20 10:22 Dose: 200 mls/hr Documented by: Ofloxacin (Floxin Otic (Ear) Solution -) 10 drop AU BID [facility] Stop: 07/15/20 21:59 Last Admin: 07/04/20 10:31 Dose: 10 drop Documented by: Polyethylene Glycol (Miralax (For Daily Use) -) 17 gm PO DAILY [facility] Last Admin: 07/04/20 11:13 Dose: Not Given Documented by: - Objective Vital Signs: Vital Signs Temperature 98.2 F 07/04/20 06:00 Pulse Rate 77 07/04/20 06:00 Respiratory Rate 20 07/04/20 06:00 Blood Pressure 100/65 07/04/20 06:00 O2 Sat by Pulse Oximetry (%) 98 07/04/20 06:00 Constitutional: Yes: Calm, Mild Distress Cardiovascular: Yes: S1, S2 Respiratory: Yes: Regular, CTA Bilaterally Gastrointestinal: Yes: Normal Bowel Sounds, Soft Genitourinary: Yes: WNL Musculoskeletal: Yes: WNL Extremities: Yes: WNL Wound/Incision: Yes: Dressing Dry and Intact, Draining Neurological: Yes: Alert, Oriented Psychiatric: Yes: Alert, Oriented Labs: CBC, BMP 07/04/20 07:51 07/04/20 07:51 Assessment/Plan 60 y.o. female with hx of lacerations in b/l earlobes post fall presenting with c/o worsening Rt earlobe edema/pain and drainage from Rt > Lt ears without hearing impairment despite oral antibiotics as outpt Otitis externa r/o extension to inner ear Periauricular cellulitis ? Rt facial cellulitis s/p b/l earlobe lacerations post fall -- Wound cultures preliminarily + Pseudomonas now serratia continue cipro wound care rest as per the team
--- NOTE | 2020-07-04 13:45 | PN ---
Teaching Attending Note Name of Resident: Keyshawn Mcdonald ATTENDING PHYSICIAN STATEMENT I saw and evaluated the patient. I reviewed the resident's note and discussed the case with the resident. I agree with the resident's findings and plan as documented. SUBJECTIVE: Seen and examined at bedside. Still has some ear pain, continues to drain OBJECTIVE Last Vital Signs Temp Pulse Resp BP Pulse Ox 98.2 F 77 20 100/65 98 07/04/20 06:00 07/04/20 06:00 07/04/20 06:00 07/04/20 06:00 07/04/20 06:00 PE: Per resident note Labs/Imaging: reviewed ASSESSMENT/PLAN 60-year-old female past medical history of HLD, glaucoma presents with bilateral ear purulence and pain, admitted for otitis media externa. #Otitis media externa Cultures show Pseudomonas and Serratia both sensitive to Levaquin ID on board: Appreciate recommendations ENT consulted: Pending recommendations Currently on ciprofloxacin IV and ofloxacin eardrops #HLD Continue statin #History of glaucoma Continue acetazolamide
--- NOTE | 2020-07-04 22:46 | PN ---
Physical Exam: SUBJECTIVE: Patient seen and examined at bedside this AM. Denies fevers or ear pain. OBJECTIVE: Vital Signs Period Temp Pulse Resp BP Sys/Arlelano Pulse Ox Last 24 Hr 98.2 F-98.3 F 73-79 20-20 100-106/59-66 97-98 GENERAL: No acute distress HEAD: Normal with no signs of trauma. EYES: EOMI Sclera Clear ENT: Right ear open wound near [id number]. No pain elicited when pinna pulled. Left ear small open wound no purulence. Pinna nontender. LUNGS: Breath sounds equal. CTAB. No wheezing. On RA HEART: RRR S1S2 no MRG ABDOMEN: Soft, NDNT EXTREMITIES: No CCE NEUROLOGICAL: Cranial nerves II through XII grossly intact. SKIN: Warm, dry, normal turgor, no rashes or lesions noted Laboratory Results - last 24 hr 07/04/20 07/04/20 07:51 07:51 WBC 5.2 RBC 4.32 Hgb 14.3 Hct 42.0 MCV 97.0 H MCH 33.0 MCHC 34.0 RDW 12.9 Plt Count 186 MPV 9.1 Sodium 141 Potassium 4.4 Chloride 110 H Carbon Dioxide 25 Anion Gap 5 L BUN 10.5 Creatinine 0.7 Est GFR (CKD-EPI)AfAm 107.62 Est GFR (CKD-EPI)NonAf 92.86 Random Glucose 88 Calcium 8.5 Phosphorus 3.2 Magnesium 2.2 Active Medications Generic Name Dose Route Start Last Admin Trade Name Freq PRN Reason Stop Dose Admin Acetaminophen 650 mg 07/01/20 21:49 07/02/20 16:21 Tylenol - PO 650 mg Q4H PRN Administration PAIN LEVEL 6-10 Acetazolamide 125 mg 07/02/20 18:00 07/04/20 17:09 Diamox - PO 125 mg DAILY@1800 KONRAD Administration Atorvastatin Calcium 10 mg 07/02/20 22:00 07/03/20 21:13 Lipitor - PO 10 mg HS KONRAD Administration Bacitracin 1 applic 07/02/20 10:00 07/04/20 10:31 Bacitracin - TP 1 applic DAILY KONRAD Administration Enoxaparin Sodium 40 mg 07/02/20 10:00 07/04/20 10:34 Lovenox - SQ 40 mg DAILY KONRAD Administration Ciprofloxacin/Dextrose 400 mg in 200 mls @ 200 mls/hr 07/02/20 14:30 07/04/20 10:22 Cipro 400 Mg Premix Ivpb (Restricted To Id) IVPB 200 mls/hr BID KONRAD Administration Ofloxacin 10 drop 07/01/20 22:00 07/04/20 10:31 Floxin Otic (Ear) Solution - AU 07/15/20 21:59 10 drop BID KONRAD Administration Polyethylene Glycol 17 gm 07/03/20 17:15 07/04/20 11:13 Miralax (For Daily Use) - PO Not Given DAILY KONRAD ASSESSMENT/PLAN: 60 y.o. F PMH HLD, glaucoma presenting to the ED for persistent b/l ear purulence and pain. Admitted for b/l ear cellulites #Bilateral ear cellulites/Otitis Externa -Clinda D/C'ed by ID in light of cultures + for Pseudomonas and Serratia M. -Imaging air conditioning supervisor read for temporal bone CT showing right earlobe cellulites. Patient has been afebrile and without leukocytosis. -Wound culture from right ear sent---> + Serratia and pseudomonas -On ofloxacin ear drops and Cipro IV. Bacitracin Cultures are sensitive to Levaquin -ID consulted Dr Urbano. Continue current treatment. -ENT consulted. Recs appreciated #HLD -continue home statin #Glaucoma -continue home dose acetazolamide 125mg daily #FEN -no standing fluids -monitor & replete lytes as needed -low fat diet #PPX -LVX 40 sq #Dispo med surg Visit type - Emergency Visit Emergency Visit: Yes ED Registration Date: 07/01/20 Care time: The patient presented to the Emergency Department on the above date and was hospitalized for further evaluation of their emergent condition. - New Patient This patient is new to me today: No - Critical Care Critical Care patient: No - Discharge Referral Referred to [facility] Med P.C.: No ATTENDING PHYSICIAN STATEMENT I saw and evaluated the patient. I reviewed the resident's note and discussed the case with the resident. I agree with the resident's findings and plan as documented. SUBJECTIVE: OBJECTIVE: ASSESSMENT AND PLAN:
[2020-07-04] MEDS: ATORVASTATIN CA 10 MG TABLET (FP) PO SCH (22:47)
[2020-07-05 07:59] LABS: HEMATOCRIT 39.7 % (32.4-45.2); HEMOGLOBIN 13.6 GM/dL (10.7-15.3); MCH 33.2 pg (25.7-33.7); MCHC 34.1 g/dl (32.0-36.0); MEAN CELL VOLUME 97.2 fl (80-96); RBC 4.09 M/mm3 (3.60-5.2); RDW 12.6 % (11.6-15.6); WHITE BLOOD COUNT 5.6 K/mm3 (4.0-10.0)
[2020-07-05 08:31] LABS: BLOOD UREA NITROGEN 12.3 mg/dL (7-18); CALCIUM 8.8 mg/dL (8.5-10.1); CREATININE 0.7 mg/dL (0.55-1.3); MAGNESIUM 2.2 mg/dL (1.8-2.4); PHOSPHOROUS 3.6 mg/dL (2.5-4.9); POTASSIUM 3.8 mmol/L (3.5-5.1)
[2020-07-05] MEDS ORDERED: PT OWN MED DRAWER 7, Y5N ONE (09:56)
[2020-07-05] MEDS: CIPROFLOXACIN 400 MG/D5W 400 MG/200 ML IVPB IVPB SCH ×2 (10:05→21:04)
[2020-07-05] MEDS: OFLOXACIN 0.3% OTIC SOLUTION 5 ML BOTTLE AU SCH ×2 (10:06→21:04)
[2020-07-05] MEDS: ENOXAPARIN NA (PORCINE) 40 MG/0.4 ML DISP.SYRIN SQ SCH (10:06)
[2020-07-05] MEDS: BACITRACIN 15 GM TUBE TOPICAL OINTMENT TP SCH (10:07)
--- NOTE | 2020-07-05 10:44 | PN ---
Progress Note, Physician History of Present Illness: draining has decreased - Current Medication List Current Medications: Active Medications Acetaminophen (Tylenol -) 650 mg PO Q4H PRN PRN Reason: PAIN LEVEL 6-10 Last Admin: 07/02/20 16:21 Dose: 650 mg Documented by: Acetazolamide (Diamox -) 125 mg PO DAILY@1800 [facility] Last Admin: 07/04/20 17:09 Dose: 125 mg Documented by: Atorvastatin Calcium (Lipitor -) 10 mg PO HS [facility] Last Admin: 07/04/20 22:47 Dose: 10 mg Documented by: Bacitracin (Bacitracin -) 1 applic TP DAILY [facility] Last Admin: 07/05/20 10:07 Dose: 1 applic Documented by: Enoxaparin Sodium (Lovenox -) 40 mg SQ DAILY [facility] Last Admin: 07/05/20 10:06 Dose: 40 mg Documented by: Ciprofloxacin/Dextrose (Cipro 400 Mg Premix Ivpb (Restricted To Id)) 400 mg in 200 mls @ 200 mls/hr IVPB BID [facility] Last Admin: 07/05/20 10:05 Dose: 200 mls/hr Documented by: Ofloxacin (Floxin Otic (Ear) Solution -) 10 drop AU BID [facility] Stop: 07/15/20 21:59 Last Admin: 07/05/20 10:06 Dose: 10 drop Documented by: Polyethylene Glycol (Miralax (For Daily Use) -) 17 gm PO DAILY [facility] Last Admin: 07/04/20 11:13 Dose: Not Given Documented by: - Objective Vital Signs: Vital Signs Temperature 97.8 F 07/05/20 06:00 Pulse Rate 75 07/05/20 10:00 Respiratory Rate 20 07/05/20 10:00 Blood Pressure 101/71 07/05/20 10:00 O2 Sat by Pulse Oximetry (%) 97 07/05/20 09:00 Constitutional: Yes: No Distress, Calm Cardiovascular: Yes: S1, S2 Respiratory: Yes: Regular, CTA Bilaterally Gastrointestinal: Yes: Normal Bowel Sounds, Soft Musculoskeletal: Yes: WNL Extremities: Yes: Other Wound/Incision: Yes: Dressing Dry and Intact Neurological: Yes: Alert, Oriented Psychiatric: Yes: Alert, Oriented Labs: CBC, BMP 07/05/20 07:06 07/05/20 07:06 Assessment/Plan 60 y.o. female with hx of lacerations in b/l earlobes post fall presenting with c/o worsening Rt earlobe edema/pain and drainage from Rt > Lt ears without hearing impairment despite oral antibiotics as outpt Otitis externa r/o extension to inner ear Periauricular cellulitis ? Rt facial cellulitis s/p b/l earlobe lacerations post fall -- Wound cultures preliminarily + Pseudomonas now serratia continue cipro wound care rest as per the team
--- NOTE | 2020-07-05 12:38 | PN ---
Teaching Attending Note Name of Resident: Oswald Banuelos ATTENDING PHYSICIAN STATEMENT I saw and evaluated the patient. I reviewed the resident's note and discussed the case with the resident. I agree with the resident's findings and plan as documented. SUBJECTIVE: Seen and examined at bedside. Still has some ear pain, continues to drain OBJECTIVE Last Vital Signs Temp Pulse Resp BP Pulse Ox 97.8 F 75 20 101/71 97 07/05/20 06:00 07/05/20 10:00 07/05/20 10:00 07/05/20 10:07/05/20 09:00 PE: Per resident note Labs/Imaging: reviewed ASSESSMENT/PLAN 60-year-old female past medical history of HLD, glaucoma presents with bilateral ear purulence and pain, admitted for otitis media externa. #Otitis media externa Cultures show Pseudomonas and Serratia both sensitive to Levaquin ID on board: Appreciate recommendations ENT consulted: Pending recommendations Currently on ciprofloxacin IV and ofloxacin eardrops #HLD Continue statin #History of glaucoma Continue acetazolamide Dispo: patient is anxious to go home with IV abx. May be discharged home if switched to PO or if she becomes more comfortable with the idea of home abx
[2020-07-05] MEDS: POLYETHYLENE GLYCOL 3350 119 GM BTL PO SCH (13:52)
--- NOTE | 2020-07-05 14:43 | PN ---
Physical Exam: SUBJECTIVE: Patient seen and examined. Pt. asking to stay in hospital because she does not have help at home and lives by herself. Pt. denies any acute changes. OBJECTIVE: Vital Signs Period Temp Pulse Resp BP Sys/Arellano Pulse Ox Last 24 Hr 97.8 F-98.3 F 71-79 20-20 98-106/55-71 97-98 GENERAL: No acute distress HEAD: Normal with no signs of trauma. EYES: Sclera Clear ENT: Right ear open wound near tragus-oozing. slight pain elicited when pinna pulled. Left ear small open wound no purulence. Pinna nontender. LUNGS: Breath sounds equal. CTAB. No wheezing. On RA HEART: RRR S1S2 no MRG ABDOMEN: Soft, NDNT EXTREMITIES: No calf tenderness, no edema NEUROLOGICAL: No focal deficits aside from decreased hearing from oozing. On re- assesment 2 hours later after bandaged changed Pt. endorses increased hearing ability. SKIN: Warm, dry, normal turgor Laboratory Results - last 24 hr 07/05/20 07/05/20 07:06 07:06 WBC 5.6 RBC 4.09 Hgb 13.6 Hct 39.7 MCV 97.2 H MCH 33.2 MCHC 34.1 RDW 12.6 Plt Count No Result Required. Sodium 140 Potassium 3.8 Chloride 109 H Carbon Dioxide 24 Anion Gap 7 L BUN 12.3 Creatinine 0.7 Est GFR (CKD-EPI)AfAm 107.62 Est GFR (CKD-EPI)NonAf 92.86 Random Glucose 87 Calcium 8.8 Phosphorus 3.6 Magnesium 2.2 Active Medications Generic Name Dose Route Start Last Admin Trade Name Romuloq PRN Reason Stop Dose Admin Acetaminophen 650 mg 07/01/20 21:49 07/02/20 16:21 Tylenol - PO 650 mg Q4H PRN Administration PAIN LEVEL 6-10 Acetazolamide 125 mg 07/02/20 18:00 07/04/20 17:09 Diamox - PO 125 mg DAILY@1800 KONRAD Administration Atorvastatin Calcium 10 mg 07/02/20 22:00 07/04/20 22:47 Lipitor - PO 10 mg HS KONRAD Administration Bacitracin 1 applic 07/02/20 10:00 07/05/20 10:07 Bacitracin - TP 1 applic DAILY KONRAD Administration Enoxaparin Sodium 40 mg 07/02/20 10:00 07/05/20 10:06 Lovenox - SQ 40 mg DAILY KONRAD Administration Ciprofloxacin/Dextrose 400 mg in 200 mls @ 200 mls/hr 07/02/20 14:30 07/05/20 10:05 Cipro 400 Mg Premix Ivpb (Restricted To Id) IVPB 200 mls/hr BID KONRAD Administration Ofloxacin 10 drop 07/01/20 22:00 07/05/20 10:06 Floxin Otic (Ear) Solution - AU 07/15/20 21:59 10 drop BID KONRAD Administration Polyethylene Glycol 17 gm 07/03/20 17:15 07/05/20 13:52 Miralax (For Daily Use) - PO Not Given DAILY KONRAD ASSESSMENT/PLAN: 60 y.o. F PMH HLD, glaucoma presenting to the ED for persistent b/l ear purulence and pain. Admitted for b/l ear cellulites #Bilateral ear cellulites/Otitis Externa -Clinda D/C'ed by ID in light of cultures + for Pseudomonas and Serratia M. -Imaging material control analyst read for temporal bone CT showing right earlobe cellulites. Patient has been afebrile and without leukocytosis. -Wound culture from right ear sent---> + Serratia and pseudomonas -On ofloxacin ear drops and Cipro IV. Bacitracin -ID consulted Dr Urbano. Continue current treatment, can switch to PO in AM -ENT consulted. Recs appreciated #HLD -continue home statin #Glaucoma -continue home dose acetazolamide 125mg daily #FEN -no standing fluids -monitor & replete lytes as needed -low fat diet #PPX -LVX 40 sq #Dispo med surg- likely can D/c tomorrow or Friday pending Pt. comfortability going home, consider short-term VNS? Visit type - Emergency Visit Emergency Visit: Yes ED Registration Date: 07/01/20 Care time: The patient presented to the Emergency Department on the above date and was hospitalized for further evaluation of their emergent condition. - New Patient This patient is new to me today: Yes Date on this admission: 07/05/20 - Critical Care Critical Care patient: No - Discharge Referral Referred to [facility] Med P.C.: No ATTENDING PHYSICIAN STATEMENT I saw and evaluated the patient. I reviewed the resident's note and discussed the case with the resident. I agree with the resident's findings and plan as documented. SUBJECTIVE: OBJECTIVE: ASSESSMENT AND PLAN:
[2020-07-05] MEDS: ATORVASTATIN CA 10 MG TABLET (FP) PO SCH (21:04)
[2020-07-06] MEDS: ACETAMINOPHEN 325 MG TABLET (FP) PO PRN ×2 (05:46→14:55)
--- NOTE | 2020-07-06 09:42 | PN ---
Teaching Attending Note Name of Resident: Keyshawn Mcdonald ATTENDING PHYSICIAN STATEMENT I saw and evaluated the patient. I reviewed the resident's note and discussed the case with the resident. I agree with the resident's findings and plan as documented. SUBJECTIVE: Drainage decreasing. No complaints from patient, but does not want to go home with IV antibiotics. Patient would like to have visiting services to aid in wound care because she lives home alone and due to positioning of bandages needs help. OBJECTIVE: Vital Signs Temperature 98.4 F 07/06/20 05:54 Pulse Rate 65 07/06/20 05:54 Respiratory Rate 18 07/06/20 05:54 Blood Pressure 103/67 07/06/20 05:54 O2 Sat by Pulse Oximetry (%) 96 07/06/20 05:54 PE: Gen: NAd, awake, alert, oriented HEENT: NC, L ear with no drainage and slight erythema noted, R ear with wound and minimal drainage on bandage, continued minor edema of the surrounding local tissues with slight erythema at the center, MMM LUNG: CTA b/l without wheezes or rales CARD: RRR no murmurs appreciated ABD: Soft, NT/ND + BS EXT: No edema CBC, BMP 07/05/20 07:06 07/05/20 07:06 Microbiology 07/01/20 12:54 Abscess Gram Stain - Final 07/01/20 12:54 Abscess Wound Culture - Final Pseudomonas Aeruginosa Serratia Marcescens Active Medications Acetaminophen (Tylenol -) 650 mg PO Q4H PRN PRN Reason: PAIN LEVEL 6-10 Last Admin: 07/06/20 05:46 Dose: 650 mg Documented by: Acetazolamide (Diamox -) 125 mg PO DAILY@1800 [facility] Last Admin: 07/05/20 17:14 Dose: 125 mg Documented by: Atorvastatin Calcium (Lipitor -) 10 mg PO HS [facility] Last Admin: 07/05/20 21:04 Dose: 10 mg Documented by: Bacitracin (Bacitracin -) 1 applic TP DAILY [facility] Last Admin: 07/05/20 10:07 Dose: 1 applic Documented by: Enoxaparin Sodium (Lovenox -) 40 mg SQ DAILY [facility] Last Admin: 07/05/20 10:06 Dose: 40 mg Documented by: Ciprofloxacin/Dextrose (Cipro 400 Mg Premix Ivpb (Restricted To Id)) 400 mg in 200 mls @ 200 mls/hr IVPB BID [facility]ONRAD Last Admin: 07/05/20 21:04 Dose: 200 mls/hr Documented by: Ofloxacin (Floxin Otic (Ear) Solution -) 10 drop AU BID KONRAD Stop: 07/15/20 21:59 Last Admin: 07/05/20 21:04 Dose: 10 drop Documented by: Polyethylene Glycol (Miralax (For Daily Use) -) 17 gm PO DAILY [facility]ONRAD Last Admin: 07/05/20 13:52 Dose: Not Given Documented by: ASSESSMENT AND PLAN: Otitis Externa with failure of outpatient antibiotics History of HLD History of HTN --Cultures noted with pseudomonas and serratia sensitive for fluoroquinolones --Monitor drainage: if it has decreased and managable, pt can be discharged with oral fluoroquinolone totalling 2 weeks possible --Discussed with ID on board --Imaging reviewed with soft tissue edema/inflammation without any other complications --Continue home medications Dispo: continue M/S DO Cory Verdugo
[2020-07-06] MEDS: BACITRACIN 15 GM TUBE TOPICAL OINTMENT TP SCH (09:57)
[2020-07-06] MEDS: ENOXAPARIN NA (PORCINE) 40 MG/0.4 ML DISP.SYRIN SQ SCH (09:57)
[2020-07-06] MEDS: CIPROFLOXACIN 400 MG/D5W 400 MG/200 ML IVPB IVPB SCH ×2 (09:57→21:25)
[2020-07-06] MEDS: POLYETHYLENE GLYCOL 3350 119 GM BTL PO SCH (10:06)
--- NOTE | 2020-07-06 10:30 | PN ---
Progress Note, Physician History of Present Illness: stable still draining from the rt ear left better - Current Medication List Current Medications: Active Medications Acetaminophen (Tylenol -) 650 mg PO Q4H PRN PRN Reason: PAIN LEVEL 6-10 Last Admin: 07/06/20 05:46 Dose: 650 mg Documented by: Acetazolamide (Diamox -) 125 mg PO DAILY@1800 [facility] Last Admin: 07/05/20 17:14 Dose: 125 mg Documented by: Atorvastatin Calcium (Lipitor -) 10 mg PO HS [facility] Last Admin: 07/05/20 21:04 Dose: 10 mg Documented by: Bacitracin (Bacitracin -) 1 applic TP DAILY [facility] Last Admin: 07/06/20 09:57 Dose: 1 applic Documented by: Enoxaparin Sodium (Lovenox -) 40 mg SQ DAILY [facility] Last Admin: 07/06/20 09:57 Dose: 40 mg Documented by: Ciprofloxacin/Dextrose (Cipro 400 Mg Premix Ivpb (Restricted To Id)) 400 mg in 200 mls @ 200 mls/hr IVPB BID [facility] Last Admin: 07/06/20 09:57 Dose: 200 mls/hr Documented by: Ofloxacin (Floxin Otic (Ear) Solution -) 10 drop AU BID [facility] Stop: 07/15/20 21:59 Last Admin: 07/05/20 21:04 Dose: 10 drop Documented by: Polyethylene Glycol (Miralax (For Daily Use) -) 17 gm PO DAILY [facility] Last Admin: 07/06/20 10:06 Dose: Not Given Documented by: - Objective Vital Signs: Vital Signs Temperature 98.4 F 07/06/20 05:54 Pulse Rate 65 07/06/20 05:54 Respiratory Rate 18 07/06/20 05:54 Blood Pressure 103/67 07/06/20 05:54 O2 Sat by Pulse Oximetry (%) 96 07/06/20 05:54 Constitutional: Yes: No Distress, Calm HENT: Yes: Other (drainage from the ear) Cardiovascular: Yes: S1, S2 Respiratory: Yes: Regular, CTA Bilaterally Gastrointestinal: Yes: Normal Bowel Sounds, Soft Musculoskeletal: Yes: WNL Extremities: Yes: WNL Wound/Incision: Yes: Dressing Dry and Intact, Draining Neurological: Yes: Alert, Oriented Psychiatric: Yes: Alert, Oriented Labs: CBC, BMP 07/05/20 07:06 07/05/20 07:06 Assessment/Plan 60 y.o. female with hx of lacerations in b/l earlobes post fall presenting with c/o worsening Rt earlobe edema/pain and drainage from Rt > Lt ears without hearing impairment despite oral antibiotics as outpt Otitis externa r/o extension to inner ear Periauricular cellulitis ? Rt facial cellulitis s/p b/l earlobe lacerations post fall -- Wound cultures preliminarily + Pseudomonas now serratia continue cipro wound care rest as per the team
[2020-07-06] MEDS: OFLOXACIN 0.3% OTIC SOLUTION 5 ML BOTTLE AU SCH ×2 (13:16→21:25)
[2020-07-06] MEDS ORDERED: PT OWN MED DRAWER 7, Y5N ONE ×2 (17:25→21:21)
--- NOTE | 2020-07-06 19:01 | PN ---
Physical Exam: SUBJECTIVE: Patient seen and examined at bedside. No acute events. Denies any ear pain or fevers. OBJECTIVE: Vital Signs Period Temp Pulse Resp BP Sys/Arellano Pulse Ox Last 24 Hr 98.4 F-98.8 F 65-80 18-18 103-127/52-67 96-100 GENERAL: NAD AAOx3 HEAD: Normal with no signs of trauma. EYES: EOMI Sclera Clear. ENT: Right ear wound at tragus. No purulence or drainage appreciated. no tenderness when pinna is pulled. left ear no purulence or drainage appreciated. NECK: Trachea midline, full range of motion, supple. LUNGS: CTAB HEART: RRR S1S2 ABDOMEN: Soft, NDNT EXTREMITIES: 2+ pulses, warm, well-perfused, no edema. NEUROLOGICAL: Cranial nerves II through XII grossly intact. PSYCH: Normal mood, normal affect. SKIN: Warm, dry, normal turgor, no rashes or lesions noted Active Medications Generic Name Dose Route Start Last Admin Trade Name Freq PRN Reason Stop Dose Admin Acetaminophen 650 mg 07/01/20 21:49 07/06/20 14:55 Tylenol - PO 650 mg Q4H PRN Administration PAIN LEVEL 6-10 Acetazolamide 125 mg 07/02/20 18:00 07/06/20 17:32 Diamox - PO 125 mg DAILY@1800 KONRAD Administration Atorvastatin Calcium 10 mg 07/02/20 22:00 07/05/20 21:04 Lipitor - PO 10 mg HS KONRAD Administration Bacitracin 1 applic 07/02/20 10:00 07/06/20 09:57 Bacitracin - TP 1 applic DAILY KONRAD Administration Enoxaparin Sodium 40 mg 07/02/20 10:00 07/06/20 09:57 Lovenox - SQ 40 mg DAILY KONRAD Administration Ciprofloxacin/Dextrose 400 mg in 200 mls @ 200 mls/hr 07/02/20 14:30 07/06/20 09:57 Cipro 400 Mg Premix Ivpb (Restricted To Id) IVPB 200 mls/hr BID KONRAD Administration Ofloxacin 10 drop 07/01/20 22:00 07/06/20 13:16 Floxin Otic (Ear) Solution - AU 07/15/20 21:59 10 drop BID KONRAD Administration Polyethylene Glycol 17 gm 07/03/20 17:15 07/06/20 10:06 Miralax (For Daily Use) - PO Not Given DAILY KONRAD ASSESSMENT/PLAN: 60 y.o. F PMH HLD, glaucoma presenting to the ED for persistent b/l ear purul ence and pain. Admitted for b/l ear cellulites #Bilateral ear cellulites/Otitis Externa -Clinda D/C'ed by ID in light of cultures + for Pseudomonas and Serratia M. -Imaging motion designer read for temporal bone CT showing right earlobe cellulites. Patient has been afebrile and without leukocytosis. -Wound culture from right ear sent---> + Serratia and pseudomonas -On ofloxacin ear drops and Cipro IV. Bacitracin. Will likely d/c tomorrow with PO Cipro and antibiotic ear drops. Cultures are sensitive to Levaquin -ID consulted Dr Urbano. Continue current treatment. -ENT consulted. Recs appreciated #HLD -continue home statin #Glaucoma -continue home dose acetazolamide 125mg daily #FEN -no standing fluids -monitor & replete lytes as needed -low fat diet #PPX -LVX 40 sq #Dispo Likely d/c in am Visit type - Emergency Visit Emergency Visit: Yes ED Registration Date: 07/01/20 Care time: The patient presented to the Emergency Department on the above date and was hospitalized for further evaluation of their emergent condition. - New Patient This patient is new to me today: No - Critical Care Critical Care patient: No ATTENDING PHYSICIAN STATEMENT I saw and evaluated the patient. I reviewed the resident's note and discussed the case with the resident. I agree with the resident's findings and plan as documented. SUBJECTIVE: OBJECTIVE: ASSESSMENT AND PLAN:
[2020-07-06] MEDS: ATORVASTATIN CA 10 MG TABLET (FP) PO SCH (21:25)
[2020-07-07 07:15] LABS: HEMATOCRIT 40.4 % (32.4-45.2); HEMOGLOBIN 13.5 GM/dL (10.7-15.3); MCHC 33.5 g/dl (32.0-36.0); MEAN CELL VOLUME 95.5 fl (80-96); PLATELET COUNT 201 K/MM3 (134-434); RBC 4.23 M/mm3 (3.60-5.2); RDW 12.8 % (11.6-15.6); WHITE BLOOD COUNT 4.9 K/mm3 (4.0-10.0)
[2020-07-07 07:54] LABS: BLOOD UREA NITROGEN 14.5 mg/dL (7-18); CALCIUM 8.6 mg/dL (8.5-10.1); MAGNESIUM 2.3 mg/dL (1.8-2.4); POTASSIUM 3.6 mmol/L (3.5-5.1)
[2020-07-07 07:57] LABS: CREATININE 0.6 mg/dL (0.55-1.3); PHOSPHOROUS 3.1 mg/dL (2.5-4.9)
[2020-07-07] MEDS: CIPROFLOXACIN 400 MG/D5W 400 MG/200 ML IVPB IVPB SCH ×2 (10:23→21:36)
[2020-07-07] MEDS: ENOXAPARIN NA (PORCINE) 40 MG/0.4 ML DISP.SYRIN SQ SCH (10:24)
[2020-07-07] MEDS: OFLOXACIN 0.3% OTIC SOLUTION 5 ML BOTTLE AU SCH ×2 (10:24→21:36)
[2020-07-07] MEDS: BACITRACIN 15 GM TUBE TOPICAL OINTMENT TP SCH (10:25)
[2020-07-07] MEDS: POLYETHYLENE GLYCOL 3350 119 GM BTL PO SCH (10:25)
--- NOTE | 2020-07-07 11:05 | PN ---
Progress Note, Physician History of Present Illness: stable no new issues still draining a lot from her right ear - Current Medication List Current Medications: Active Medications Acetaminophen (Tylenol -) 650 mg PO Q4H PRN PRN Reason: PAIN LEVEL 6-10 Last Admin: 07/06/20 14:55 Dose: 650 mg Documented by: Acetazolamide (Diamox -) 125 mg PO DAILY@1800 [facility] Last Admin: 07/06/20 17:32 Dose: 125 mg Documented by: Atorvastatin Calcium (Lipitor -) 10 mg PO HS [facility] Last Admin: 07/06/20 21:25 Dose: 10 mg Documented by: Bacitracin (Bacitracin -) 1 applic TP DAILY [facility] Last Admin: 07/07/20 10:25 Dose: 1 applic Documented by: Enoxaparin Sodium (Lovenox -) 40 mg SQ DAILY [facility] Last Admin: 07/07/20 10:24 Dose: 40 mg Documented by: Ciprofloxacin/Dextrose (Cipro 400 Mg Premix Ivpb (Restricted To Id)) 400 mg in 200 mls @ 200 mls/hr IVPB BID [facility] Last Admin: 07/07/20 10:23 Dose: 200 mls/hr Documented by: Ofloxacin (Floxin Otic (Ear) Solution -) 10 drop AU BID [facility] Stop: 07/15/20 21:59 Last Admin: 07/07/20 10:24 Dose: 10 drop Documented by: Polyethylene Glycol (Miralax (For Daily Use) -) 17 gm PO DAILY [facility] Last Admin: 07/07/20 10:25 Dose: 17 grams Documented by: - Objective Vital Signs: Vital Signs Temperature 98.4 F 07/07/20 05:58 Pulse Rate 73 07/07/20 05:58 Respiratory Rate 18 07/07/20 05:58 Blood Pressure 89/59 L 07/07/20 05:58 O2 Sat by Pulse Oximetry (%) 96 07/07/20 05:58 Constitutional: Yes: No Distress, Calm Eyes: Yes: Conjunctiva Clear HENT: Yes: Other (still draining) Cardiovascular: Yes: Regular Rate and Rhythm Respiratory: Yes: Regular, CTA Bilaterally Gastrointestinal: Yes: Normal Bowel Sounds, Soft Musculoskeletal: Yes: WNL Extremities: Yes: WNL Wound/Incision: Yes: Dressing Dry and Intact Neurological: Yes: Alert Psychiatric: Yes: Alert, Oriented Labs: CBC, BMP 07/07/20 06:20 10/16/20 06:20 Assessment/Plan 60 y.o. female with hx of lacerations in b/l earlobes post fall presenting with c/o worsening Rt earlobe edema/pain and drainage from Rt > Lt ears without hearing impairment despite oral antibiotics as outpt Otitis externa r/o extension to inner ear Periauricular cellulitis ? Rt facial cellulitis s/p b/l earlobe lacerations post fall -- Wound cultures preliminarily + Pseudomonas now serratia continue cipro wound care rest as per the team
--- NOTE | 2020-07-07 13:16 | PN ---
Teaching Attending Note Name of Resident: Keyshawn Mcdonald ATTENDING PHYSICIAN STATEMENT I saw and evaluated the patient. I reviewed the resident's note and discussed the case with the resident. I agree with the resident's findings and plan as documented. SUBJECTIVE: patient still with drainage overnight in her R. ear OBJECTIVE: Vital Signs Period Temp Pulse Resp BP Sys/Arellano Pulse Ox Last 24 Hr 98.4 F-98.9 F 71-80 18-18 89-127/52-59 96-100 Please see resident note for Physical exam Patient examined during bedside rounds ASSESSMENT AND PLAN: 60 y.o F with Hx of HLD, glaucoma who presents with ear purulence and pain Ear Cellulitis Continue IV Abx at this time Wound Care Ear Drops appreciate ID recs HLD Cont Statin Ppx Lovenox
--- NOTE | 2020-07-07 16:35 | PN ---
Physical Exam: SUBJECTIVE: Patient seen and examined at bedside. Endorses increased drainage from right ear wound. Afebrile VSS. OBJECTIVE: Vital Signs Period Temp Pulse Resp BP Sys/Arellano Pulse Ox Last 24 Hr 98.4 F-98.9 F 71-75 18-18 89-107/59-61 96-99 GENERAL: NAD AAOx3 HEAD: Normal with no signs of trauma. EYES: EOMI Sclera Clear. ENT: Wound care just performed. Bandages not removed. LUNGS: CTAB HEART: RRR S1S2 ABDOMEN: Soft, NDNT EXTREMITIES: 2+ pulses, warm, well-perfused, no edema. NEUROLOGICAL: Cranial nerves II through XII grossly intact. SKIN: Warm, dry, normal turgor, no rashes or lesions noted Laboratory Results - last 24 hr 07/07/20 07/07/20 06:20 06:20 WBC 4.9 RBC 4.23 Hgb 13.5 Hct 40.4 MCV 95.5 MCH 32.0 MCHC 33.5 RDW 12.8 Plt Count 201 MPV 9.0 Sodium 139 Potassium 3.6 Chloride 108 H Carbon Dioxide 23 Anion Gap 8 BUN 14.5 Creatinine 0.6 Est GFR (CKD-EPI)AfAm 113.22 Est GFR (CKD-EPI)NonAf 97.69 Random Glucose 80 Calcium 8.6 Phosphorus 3.1 Magnesium 2.3 Active Medications Generic Name Dose Route Start Last Admin Trade Name Freq PRN Reason Stop Dose Admin Acetaminophen 650 mg 07/01/20 21:49 07/06/20 14:55 Tylenol - PO 650 mg Q4H PRN Administration PAIN LEVEL 6-10 Acetazolamide 125 mg 07/02/20 18:00 07/06/20 17:32 Diamox - PO 125 mg DAILY@1800 KONRAD Administration Atorvastatin Calcium 10 mg 07/02/20 22:00 07/06/20 21:25 Lipitor - PO 10 mg HS KONRAD Administration Bacitracin 1 applic 07/02/20 10:00 07/07/20 10:25 Bacitracin - TP 1 applic DAILY KONRAD Administration Enoxaparin Sodium 40 mg 07/02/20 10:00 07/07/20 10:24 Lovenox - SQ 40 mg DAILY KONRAD Administration Ciprofloxacin/Dextrose 400 mg in 200 mls @ 200 mls/hr 07/02/20 14:30 07/07/20 10:23 Cipro 400 Mg Premix Ivpb (Restricted To Id) IVPB 200 mls/hr BID KONRAD Administration Ofloxacin 10 drop 07/01/20 22:00 07/07/20 10:24 Floxin Otic (Ear) Solution - AU 07/15/20 21:59 10 drop BID KONRAD Administration Polyethylene Glycol 17 gm 07/03/20 17:15 07/07/20 10:25 Miralax (For Daily Use) - PO 17 grams DAILY KONRAD Administration ASSESSMENT/PLAN: 60 y.o. F PMH HLD, glaucoma presenting to the ED for persistent b/l ear purulence and pain. Admitted for b/l ear cellulites #Bilateral ear cellulites/Otitis Externa -Increased drainage from right ear wound today. -Wound Culture + for Pseudomonas and Serratia M. -Imaging control chemist read for temporal bone CT showing right earlobe cellulites. Patient has been afebrile and without leukocytosis. -Wound culture from right ear sent---> + Serratia and pseudomonas -On ofloxacin ear drops and Cipro IV. Bacitracin. Cultures are sensitive to Levaquin -ID consulted Dr Urbano. -ENT consulted. Recs appreciated #HLD -continue home statin #Glaucoma -continue home dose acetazolamide 125mg daily #FEN -no standing fluids -monitor & replete lytes as needed -low fat diet #PPX -LVX 40 sq #Dispo Will likely d/c tomorrow with PO Cipro and antibiotic ear drops. Visit type - Emergency Visit Emergency Visit: Yes ED Registration Date: 07/01/20 Care time: The patient presented to the Emergency Department on the above date and was hospitalized for further evaluation of their emergent condition. - New Patient This patient is new to me today: No - Critical Care Critical Care patient: No - Discharge Referral Referred to [facility] Med [facility].C[facility] No ATTENDING PHYSICIAN STATEMENT I saw and evaluated the patient. I reviewed the resident's note and discussed the case with the resident. I agree with the resident's findings and plan as documented. SUBJECTIVE: OBJECTIVE: ASSESSMENT AND PLAN:
[2020-07-07] MEDS: ATORVASTATIN CA 10 MG TABLET (FP) PO SCH (21:36)
[2020-07-08 06:27] VITALS: BP 110/52; PULSE 70; TEMP 97.6
[2020-07-08 06:56] LABS: HEMATOCRIT 39.9 % (32.4-45.2); HEMOGLOBIN 13.6 GM/dL (10.7-15.3); MCHC 34.2 g/dl (32.0-36.0); MEAN CELL VOLUME 96.4 fl (80-96); MEAN PLT VOLUME 9.1 fl (7.5-11.1); PLATELET COUNT 180 K/MM3 (134-434); RBC 4.13 M/mm3 (3.60-5.2); RDW 12.8 % (11.6-15.6); WHITE BLOOD COUNT 4.8 K/mm3 (4.0-10.0)
[2020-07-08 07:18] LABS: POTASSIUM 3.8 mmol/L (3.5-5.1)
[2020-07-08 07:24] LABS: BLOOD UREA NITROGEN 14.1 mg/dL (7-18); CALCIUM 8.5 mg/dL (8.5-10.1)
[2020-07-08 07:27] LABS: CREATININE 0.7 mg/dL (0.55-1.3); PHOSPHOROUS 3.6 mg/dL (2.5-4.9)
[2020-07-08] MEDS: OFLOXACIN 0.3% OTIC SOLUTION 5 ML BOTTLE AU SCH (09:30)
[2020-07-08] MEDS: ENOXAPARIN NA (PORCINE) 40 MG/0.4 ML DISP.SYRIN SQ SCH (09:31)
[2020-07-08] MEDS: BACITRACIN 15 GM TUBE TOPICAL OINTMENT TP SCH (09:31)
[2020-07-08] MEDS: POLYETHYLENE GLYCOL 3350 119 GM BTL PO SCH (09:32)
[2020-07-08] MEDS ORDERED: PT OWN MED DRAWER 7, Y5N ONE (09:33)
[2020-07-08] MEDS: CIPROFLOXACIN 400 MG/D5W 400 MG/200 ML IVPB IVPB SCH (10:37)
--- NOTE | 2020-07-08 11:42 | PN ---
Progress Note, Physician History of Present Illness: drainage better comfortable - Current Medication List Current Medications: Active Medications Acetaminophen (Tylenol -) 650 mg PO Q4H PRN PRN Reason: PAIN LEVEL 6-10 Last Admin: 07/06/20 14:55 Dose: 650 mg Documented by: Acetazolamide (Diamox -) 125 mg PO DAILY@1800 [facility] Last Admin: 07/07/20 18:06 Dose: 125 mg Documented by: Atorvastatin Calcium (Lipitor -) 10 mg PO HS [facility] Last Admin: 07/07/20 21:36 Dose: 10 mg Documented by: Bacitracin (Bacitracin -) 1 applic TP DAILY [facility] Last Admin: 07/08/20 09:31 Dose: 1 applic Documented by: Enoxaparin Sodium (Lovenox -) 40 mg SQ DAILY [facility] Last Admin: 07/08/20 09:31 Dose: 40 mg Documented by: Ciprofloxacin/Dextrose (Cipro 400 Mg Premix Ivpb (Restricted To Id)) 400 mg in 200 mls @ 200 mls/hr IVPB BID [facility] Last Admin: 07/08/20 10:37 Dose: 200 mls/hr Documented by: Ofloxacin (Floxin Otic (Ear) Solution -) 10 drop AU BID [facility] Stop: 07/15/20 21:59 Last Admin: 07/08/20 09:30 Dose: 10 drop Documented by: Polyethylene Glycol (Miralax (For Daily Use) -) 17 gm PO DAILY [facility] Last Admin: 07/08/20 09:32 Dose: 17 grams Documented by: - Objective Vital Signs: Vital Signs Temperature 97.6 F 07/08/20 06:00 Pulse Rate 70 07/08/20 06:00 Respiratory Rate 18 07/08/20 06:00 Blood Pressure 110/52 L 07/08/20 06:00 O2 Sat by Pulse Oximetry (%) 95 07/08/20 06:00 Constitutional: Yes: No Distress, Calm Cardiovascular: Yes: S1, S2 Respiratory: Yes: Regular, CTA Bilaterally Gastrointestinal: Yes: Normal Bowel Sounds, Soft Musculoskeletal: Yes: WNL Extremities: Yes: WNL Wound/Incision: Yes: Dressing Dry and Intact Neurological: Yes: Alert, Oriented Psychiatric: Yes: Alert, Oriented Labs: CBC, BMP 07/08/20 06:13 07/08/20 06:13 Assessment/Plan 60 y.o. female with hx of lacerations in b/l earlobes post fall presenting with c/o worsening Rt earlobe edema/pain and drainage from Rt > Lt ears without hearing impairment despite oral antibiotics as outpt Otitis externa r/o extension to inner ear Periauricular cellulitis ? Rt facial cellulitis s/p b/l earlobe lacerations post fall -- Wound cultures preliminarily + Pseudomonas patient can be changed to cipro orally for 10 more days with her ear drops and advise about wound being kept clean follow up needed
--- NOTE | 2020-07-08 12:40 | DS ---
Physical Examination Vital Signs: Vital Signs Temperature 97.6 F 07/08/20 06:00 Pulse Rate 70 07/08/20 06:00 Respiratory Rate 18 07/08/20 06:00 Blood Pressure 110/52 L 07/08/20 06:00 O2 Sat by Pulse Oximetry (%) 97 07/08/20 09:00 Constitutional: Yes: Well Nourished, No Distress, Calm Eyes: Yes: WNL HENT: Yes: Other (Right ear with no drainage, open wound vastly improved from previous. L ear no open wound or drainage noted) Cardiovascular: Yes: WNL, Regular Rate and Rhythm Respiratory: Yes: WNL, Regular, CTA Bilaterally Gastrointestinal: Yes: WNL, Normal Bowel Sounds, Soft Edema: No Neurological: Yes: WNL, Alert, Oriented ...Motor Strength: WNL Psychiatric: Yes: WNL Labs: CBC, BMP 07/08/20 06:13 07/08/20 06:13 Discharge Summary Problems reviewed: Yes Reason For Visit: CELLULITIS OF EARLOBE Current Active Problems Cellulitis of earlobe (Acute) Hospital Course: Patient presented with bilateral otitis externa resistant to multiple attempts at outpatient oral antibiotics. Patient was started on IV Zosyn. Wound cultures came back positive for Pseudomonas and Serratia both sensitive to fluoroquinolones. Patient was switched to IV ciprofloxacin and ofloxacin eardrops with significant improvement. Patient will be discharged on an additional 10 days of Cipro p.o. 500 mg twice daily and ofloxacin eardrops as well as bacitracin. Patient will follow up with her PCP this week for a wound check Condition: Stable - Instructions Diet, Activity, Other Instructions: You were admitted for an infection of the ears, known as otitis externa. Culture showed that you were infected with the bacteria Pseudomonas and Serratia both of which are sensitive to ciprofloxacin. You will be sent home on your previous medications as well as ciprofloxacin pills, eardrops, and bacitracin. Take these medications for 10 days. Please follow-up with your doctor within the next week for a wound check Referrals: Josiah Echeverria MD [Primary Care Provider] - - Home Medications Comprehensive Discharge Medication List: Ambulatory Orders Pravastatin Sodium 20 mg PO DAILY 08/19/17 Acetazolamide 125 mg PO TID 07/01/20 Bacitracin - [Bacitracin Topical Ointment -] 1 applic TP DAILY #1 tube 07/08/20 Ciprofloxacin [Cipro -] 500 mg PO Q12H #20 tablet 07/08/20 Ofloxacin Otic [Floxin Otic -] 1 drop AU BID #1 bot 07/08/20 acetaZOLAMIDE [Diamox -] 125 mg PO DAILY@1800 tablet 07/08/20 This patient is new to me today: No Emergency Visit: No Critical Care patient: No - Discharge Referral Referred to [facility] No
== END 2020-07-08 15:05 | disposition home or self-care (01) | DRG 156 ==
LOC: JER 11:59 → JERBED 19:15 → J7W 22:24
PROVIDERS: ADMIT Internal Medicine; ATTEND Internal Medicine
DX: H60.13 Cellulitis of external ear, bilateral (principal); H60.93 Unspecified otitis externa, bilateral; H40.9 Unspecified glaucoma; E78.5 Hyperlipidemia, unspecified; I10 Essential (primary) hypertension
CPT/HCPCS: 36415; 70481-TC; 71045-TC-FY; 80048; 80053; 81003; 83735; 84100; 85025; 85027; 87070; 87186; 87205; 87389; 93005; 93010; 97116-GP; 97161-GP; 99285-25; C9803; Q9967; U0003

== ENCOUNTER 2020-09-06 14:07 | Observation (INO) | payer OTHER ==
[2020-09-06] MEDS ORDERED: ACETAMINOPHEN 1000 MG/100 ML VIAL (NON FORMULARY) IVPB ONE (15:27)
[2020-09-06] MEDS ORDERED: SODIUM CHLORIDE 1,000 ML IV STA (15:27)
[2020-09-06] MEDS ORDERED: MAG HYDROX/AL HYDROX/SIMETH -MYLANTA- ORAL SUSPENSION PO ONE (16:01)
[2020-09-06] MEDS ORDERED: FAMOTIDINE 20 MG/50 ML IVPB 20 MG/50 ML MG IVPB ONE ×2 (16:01→16:34)
[2020-09-06] MEDS ORDERED: ONDANSETRON 4 MG/2 ML VIAL IVPUSH ONE (16:01)
[2020-09-06] MEDS ORDERED: ONDANSETRON 4 MG/2 ML VIAL ONE (16:33)
[2020-09-06] MEDS ORDERED: MAG HYDROX/AL HYDROX/SIMETH 30 ML UNIT-DOSE CUP ONE (16:33)
[2020-09-06] MEDS ORDERED: ACETAMINOPHEN INJECTION 100 ML IVPB ONE (16:33)
[2020-09-06 16:36] LABS: BASO % 0.4 % (0-2.0); EOS % 0.2 % (0-4.5); HEMATOCRIT 43.1 % (32.4-45.2); HEMOGLOBIN 14.4 GM/dL (10.7-15.3); LYMPH % 12.3 % (8-40); MCH 32.4 pg (25.7-33.7); MCHC 33.3 g/dl (32.0-36.0); MEAN CELL VOLUME 97.5 fl (80-96); MEAN PLT VOLUME 9.3 fl (7.5-11.1); MONO % 12.7 % (3.8-10.2); NEUT % 74.4 % (42.8-82.8); PLATELET COUNT 159 K/MM3 (134-434); RBC 4.43 M/mm3 (3.60-5.2); RDW 14.7 % (11.6-15.6); WHITE BLOOD COUNT 5.9 K/mm3 (4.0-10.0)
[2020-09-06 17:02] LABS: CHLORIDE 103 mmol/L (98-107); EPI CELLS 30 /uL (0-25.1); HYALINE CASTS 15 /uL (0-3.1); POTASSIUM 3.2 mmol/L (3.5-5.1); SODIUM 139 mmol/L (136-145); URINE APPEARANCE CLEAR; URINE BACTERIA 217 /uL (0-1359); URINE BILIRUBIN NEGATIVE (NEGATIVE); URINE COLOR DK YELLOW; URINE GLUCOSE (UA) NEGATIVE (NEGATIVE); URINE KETONE 1+ (NEGATIVE); URINE LEUK ESTERASE NEGATIVE (NEGATIVE); URINE NITRITE NEGATIVE (NEGATIVE); URINE PROTEIN 1+ (NEGATIVE); URINE RBC 118 /uL (0-23.9); URINE WBC 19 /uL (0-25.8)
[2020-09-06] MEDS ORDERED: POTASSIUM CHLORIDE ORAL LIQUID 20 MEQ/15 ML PO ONE (17:03)
[2020-09-06 17:05] LABS: ANION GAP 9 MMOL/L (8-16); BLOOD UREA NITROGEN 12.7 mg/dL (7-18); CALCIUM 9.1 mg/dL (8.5-10.1); CO2 27 mmol/L (21-32); GLUCOSE,RANDOM 88 mg/dL (74-106); LIPASE 83 U/L (73-393); MAGNESIUM 2.5 mg/dL (1.8-2.4)
[2020-09-06 17:06] LABS: ALBUMIN 3.2 g/dl (3.4-5.0)
[2020-09-06 17:08] LABS: CREATININE 0.8 mg/dL (0.55-1.3); PHOSPHOROUS 3.2 mg/dL (2.5-4.9); SGOT/AST 28 U/L (15-37); SGPT/ALT 30 U/L (13-61)
[2020-09-06 17:10] LABS: BILIRUBIN,TOTAL 0.8 mg/dL (0.2-1); TOT PROT 7.1 g/dl (6.4-8.2)
[2020-09-06 17:11] LABS: ALK PHOS 95 U/L (45-117)
[2020-09-06] MEDS ORDERED: POTASSIUM CHLORIDE ORAL LIQUID 20 MEQ/15 ML ONE (17:38)
[2020-09-06] MEDS ORDERED: CEFTRIAXONE 1 GM/50 ML BAG ONE (22:24)
[2020-09-07 03:09] VITALS: BMI 27.1
[2020-09-07] MEDS ORDERED: DEXTROSE 5%-WATER - 50 ML IVPB ONE (10:40)
[2020-09-07] MEDS ORDERED: cefTRIAXone SODIUM 1 GM VIAL ONE (10:40)
[2020-09-07] MEDS: CEFTRIAXONE 1 GM in DEXTROSE 5%-WATER - 50 ML IVPB SCH (10:49)
[2020-09-07] MEDS: ENOXAPARIN NA (PORCINE) 40 MG/0.4 ML DISP.SYRIN SQ SCH (10:51)
[2020-09-07 10:54] LABS: BASO % 0.3 % (0-2.0); EOS % 0.3 % (0-4.5); HEMATOCRIT 37.2 % (32.4-45.2); HEMOGLOBIN 12.3 GM/dL (10.7-15.3); LYMPH % 16.7 % (8-40); MCH 32.2 pg (25.7-33.7); MEAN CELL VOLUME 97.7 fl (80-96); MONO % 12.9 % (3.8-10.2); NEUT % 69.8 % (42.8-82.8); PLATELET COUNT 133 K/MM3 (134-434); WHITE BLOOD COUNT 6.4 K/mm3 (4.0-10.0)
[2020-09-07 11:10] LABS: POTASSIUM 3.5 mmol/L (3.5-5.1)
[2020-09-07 11:12] LABS: ALBUMIN 2.4 g/dl (3.4-5.0); CALCIUM 8.1 mg/dL (8.5-10.1); MAGNESIUM 2.2 mg/dL (1.8-2.4)
[2020-09-07 11:15] LABS: CREATININE 0.5 mg/dL (0.55-1.3)
[2020-09-07 11:16] LABS: PHOSPHOROUS 2.1 mg/dL (2.5-4.9)
[2020-09-07 11:17] LABS: BILIRUBIN,TOTAL 0.4 mg/dL (0.2-1)
[2020-09-07 11:21] LABS: TOT PROT 5.6 g/dl (6.4-8.2)
[2020-09-08 08:17] LABS: BASO % 0.3 % (0-2.0); EOS % 1.7 % (0-4.5); HEMATOCRIT 42.1 % (32.4-45.2); HEMOGLOBIN 13.8 GM/dL (10.7-15.3); LYMPH % 29.8 % (8-40); MCHC 32.7 g/dl (32.0-36.0); MEAN PLT VOLUME 10.3 fl (7.5-11.1); MONO % 8.7 % (3.8-10.2); NEUT % 59.5 % (42.8-82.8); PLATELET COUNT 164 K/MM3 (134-434); RBC 4.29 M/mm3 (3.60-5.2); RDW 14.5 % (11.6-15.6); WHITE BLOOD COUNT 5.1 K/mm3 (4.0-10.0)
[2020-09-08 08:19] LABS: POTASSIUM 3.3 mmol/L (3.5-5.1)
[2020-09-08 08:28] LABS: CALCIUM 8.3 mg/dL (8.5-10.1)
[2020-09-08 08:29] LABS: ALBUMIN 2.8 g/dl (3.4-5.0); BLOOD UREA NITROGEN 12.2 mg/dL (7-18)
[2020-09-08 08:32] LABS: BILIRUBIN,TOTAL 0.4 mg/dL (0.2-1); CREATININE 0.6 mg/dL (0.55-1.3); PHOSPHOROUS 1.8 mg/dL (2.5-4.9)
[2020-09-08 08:33] LABS: TOT PROT 6.4 g/dl (6.4-8.2)
[2020-09-08] MEDS ORDERED: DEXTROSE 5%-WATER - 50 ML IVPB ONE (08:50)
[2020-09-08] MEDS ORDERED: cefTRIAXone SODIUM 1 GM VIAL ONE (08:50)
[2020-09-08] MEDS: ENOXAPARIN NA (PORCINE) 40 MG/0.4 ML DISP.SYRIN SQ SCH (09:08)
[2020-09-08] MEDS: CEFTRIAXONE 1 GM in DEXTROSE 5%-WATER - 50 ML IVPB SCH (10:21)
[2020-09-08] MEDS ORDERED: POTASSIUM CHLORIDE TABS 20 MEQ TABLET.ER (FP) PO ONE (13:24)
[2020-09-08 15:08] VITALS: BP 115/78; PULSE 74; TEMP 98
== END 2020-09-08 15:41 | disposition home or self-care (01) ==
LOC: JER 14:07 → JERBED 21:27 → INTOOBSV 21:27 → J8W 09-07 02:31
PROVIDERS: ADMIT Hospitalist; ATTEND Student in an Organized Health Care Education/Training Program
PROC: 3E033NZ Introduction of Analgesics, Hypnotics, Sedatives into Peripheral Vein, Percutaneous Approach (ICD-10-PCS; principal; 2020-09-06)
PROC: 3E033GC Introduction of Other Therapeutic Substance into Peripheral Vein, Percutaneous Approach (ICD-10-PCS; 2020-09-06)
PROC: 3E03329 Introduction of Other Anti-infective into Peripheral Vein, Percutaneous Approach (ICD-10-PCS; 2020-09-06)
PROC: 3E023GC Introduction of Other Therapeutic Substance into Muscle, Percutaneous Approach (ICD-10-PCS; 2020-09-06)
DX: K52.9 Noninfective gastroenteritis and colitis, unspecified (principal); R10.33 Periumbilical pain; R53.83 Other fatigue; E86.0 Dehydration; R63.3 Feeding difficulties; E78.5 Hyperlipidemia, unspecified; H40.9 Unspecified glaucoma; Z88.8 Allergy status to other drugs, medicaments and biological substances; Z23 Encounter for immunization; G89.29 Other chronic pain
CPT/HCPCS: 36415; 74177-TC; 80053; 81003; 82550; 83605; 83690; 83735; 84100; 84484; 85025; 87324; 87449; 93005; 93010; 96365; 96366; 96367; 96372; 96375; 99285-25; C9803; G0378; J0131; U0003